=== PATIENT | male | born 1970 | race Caucasian/White ===

== ENCOUNTER 2017-06-19 10:34 | Emergency (ER) | payer BC, SELFPAY ==
[2017-06-19 10:43] VITALS: BP 139/85; PULSE 80; RESP 18; TEMP 36.8; O2SAT 97; BMI 24.5
--- NOTE | 2017-06-19 11:52 | HMH.EDGENADL ---
ED Disposition Clinical Impression: Musculoskeletal back pain Disposition: Home, Self-Care Condition on Discharge: Good Instructions: DI for Acute Pain -- Adult Additional Instructions: Sit down work until cleared by Dr. Strickland, see Dr. Strickland in one to four days for follow up; Rx Naproxen and Flexeril; do not take Flexeril if driving/operating equipment. Prescriptions: Cyclobenzaprine HCl [Flexeril 10mg tablet] 10 mg PO TID PRN #6 tablet PRN Reason: Muscle Spasm Naproxen [EC-Naprosyn] 500 mg PO BID PRN #[address] tablet.[address] ELLIS Reason: Pain Per Pt ([employer] Use Only) - Critical Care Critical Care Time: No Attestation: On 06/19/17, the high probability of a clinically significant, sudden or life threatening deterioration of the following system(s) required my full and direct attention, intervention and personal management. The time I documented below is in addition to time spent performing reported procedures but includes the following listed in this critical care notation. Medical Decision Making - Medical Records Medical records reviewed: Yes: I reviewed the patient's medical records. Vital Signs: 06/19/17 10:43 Temperature 98.2 F Temperature Source Oral Pulse Rate [Right Brachial] 80 Respiratory Rate 18 Blood Pressure [Right Arm] 139/85 Blood Pressure Mean [Right Arm] 103 Blood Pressure Source [Right Arm] Automatic Cuff Blood Pressure Position [Right Arm] Sitting 02 Sat by Pulse Oximetry 97 Oxygen Delivery Method Room Air - David Inquiry Pt receiving controlled substance: No General Adult HPI - General Chief complaint: PAIN Stated complaint: BACK PAIN Time Seen by Provider: 06/19/17 11:52 Mode of Arrival: Ambulatory Source of Information: Patient Limitations: No Limitations Description of Symptoms (Recalled from ER Triage Doc. by RN): PT C/O SEVERE LOWER BACK PAIN THAT BEGAN AROUND 0400. PT DENIES ANY KNOWN INJURY - History of Present Illness HPI narrative: Patient lifts frequently at work. He has intense muscle spasm to the left lower back after getting off work this morning at 4:00. No loss of bowel or bladder function. He has had back spasm in the past, but this is more intense. No acute traumatic event. No urinary symptoms. Pain is strictly positional. No syncope no cardiovascular risk factors. He has not taken any medication for this pain. Onset (ago): hour(s) (8) Location: back Radiation: non-radiation Severity: moderate Quality: aching Exacerbating factors: movement Associated symptoms: denies other symptoms Treatments prior to arrival: none - Related Data Previous Rx's Medication Instructions Recorded Cyclobenzaprine HCl [Flexeril 10mg 10 mg PO TID PRN #6 tab 06/19/17 tablet] Naproxen [EC-Naprosyn] 500 mg PO BID PRN #20 tablet. 06/19/17 Allergies Allergy/AdvReac Type Severity Reaction Status Date / Time No Known Drug Allergies Allergy Verified 06/19/17 10:52 No Known Drug Intolerances Allergy Verified 06/19/17 10:52 NO KNOWN ALLERGIES - NKA Allergy Mild Uncoded 06/03/17 14:28 [facility] History Medical History: Denies:: Cancer, Diabetes Mellitus Type 1, Diabetes Mellitus Type 2, MRSA Amputation: No - *Social History Smoking Status: Current every day smoker Tobacco Type: cigarettes Alcohol Intake: never - Psychiatric History Expresses thoughts of harming self/others: None Suicide Plan Description: No Plan ROS Obtained: Yes All systems reviewed & no additional complaints except as noted Physical Exam - General General appearance: alert, in no apparent distress - Head Head exam: atraumatic, normocephalic, normal inspection - Eye Eye exam: Present: normal appearance, PERRL, EOMI - Neck Neck exam: Present: normal inspection, full ROM, trachea midline. Absent: meningismus - Chest Chest inspection: Present: normal inspection, symmetric chest wall rise. Absent: tenderness - Respiratory Respiratory exam: Present: normal lung sounds
--- NOTE | 2017-06-19 12:03 | ED_ITS ---
ED Disposition Clinical Impression: Musculoskeletal back pain Disposition: Home, Self-Care Condition on Discharge: Good Instructions: DI for Acute Pain -- Adult Additional Instructions: Sit down work until cleared by Dr. Strickland, see Dr. Strickland in one to four days for follow up; Rx Naproxen and Flexeril; do not take Flexeril if driving/ operating equipment. Prescriptions: Cyclobenzaprine HCl [Flexeril 10mg tablet] 10 mg PO TID PRN #6 tablet PRN Reason: Muscle Spasm Naproxen [EC-Naprosyn] 500 mg PO BID PRN #20 tablet.dr ELLIS Reason: Pain Per Pt ([employer] Use Only) - Critical Care Critical Care Time: No Attestation: On 06/19/17, the high probability of a clinically significant, sudden or life threatening deterioration of the following system(s) required my full and direct attention, intervention and personal management. The time I documented below is in addition to time spent performing reported procedures but includes the following listed in this critical care notation. Medical Decision Making - Medical Records Medical records reviewed: Yes: I reviewed the patient's medical records. Vital Signs: 06/19/17 10:43 Temperature 98.2 F Temperature Source Oral Pulse Rate [Right Brachial] 80 Respiratory Rate 18 Blood Pressure [Right Arm] 139/85 Blood Pressure Mean [Right Arm] 103 Blood Pressure Source [Right Arm] Automatic Cuff Blood Pressure Position [Right Arm] Sitting 02 Sat by Pulse Oximetry 97 Oxygen Delivery Method Room Air - David Inquiry Pt receiving controlled substance: No General Adult HPI - General Chief complaint: PAIN Stated complaint: BACK PAIN Time Seen by Provider: 06/19/17 11:52 Mode of Arrival: Ambulatory Source of Information: Patient Limitations: No Limitations Description of Symptoms (Recalled from ER Triage Doc. by RN): PT C/O SEVERE LOWER BACK PAIN THAT BEGAN AROUND 0400. PT DENIES ANY KNOWN INJURY - History of Present Illness HPI narrative: Patient lifts frequently at work. He has intense muscle spasm to the left lower back after getting off work this morning at 4:00. No loss of bowel or bladder function. He has had back spasm in the past, but this is more intense. No acute traumatic event. No urinary symptoms. Pain is strictly positional. No syncope no cardiovascular risk factors. He has not taken any medication for this pain. Onset (ago): hour(s) (8) Location: back Radiation: non-radiation Severity: moderate Quality: aching Exacerbating factors: movement Associated symptoms: denies other symptoms Treatments prior to arrival: none - Related Data Previous Rx's Medication Instructions Recorded Cyclobenzaprine HCl [Flexeril 10mg 10 mg PO TID PRN #6 tab 06/19/17 tablet] Naproxen [EC-Naprosyn] 500 mg PO BID PRN #20 tablet. 06/19/17 Allergies Allergy/AdvReac Type Severity Reaction Status Date / Time No Known Drug Allergies Allergy Verified 06/19/17 10:52 No Known Drug Intolerances Allergy Verified 06/19/17 10:52 NO KNOWN ALLERGIES - NKA Allergy Mild Uncoded 06/03/17 14:28 [facility] History Medical History: Denies:: Cancer, Diabetes Mellitus Type 1, Diabetes Mellitus Type 2, MRSA Amputation: No - *Social History Smoking Status: Current every day smoker Tobacco Type: cigarettes Alcohol Intake: never - Psychiatric History Expresses michelle
[2017-06-19 12:18] VITALS: BP 132/75; PULSE 82; RESP 18
== END 2017-06-19 12:18 | disposition home or self-care (01) ==
PROVIDERS: Emergency Provider Emergency Medicine; Family Provider Family Medicine
DX: M54.5 Low back pain (principal); M62.838 Other muscle spasm
CPT/HCPCS: 96372; 99282

== ENCOUNTER → 2017-06-23 15:39 | Outpatient (CLI) | payer SELFPAY ==
--- NOTE | 2017-06-23 15:49 | XR_ITS ---
EXAM: XR lumbar spine min 4V HISTORY: ITS.REASON: LOW BACK PAIN ORDERING PHYSICIAN: Michael Strickland MD PATIENT AGE: 47 years COMPARISON: None FINDINGS: Normal alignment. No fracture or dislocation. No lytic or blastic change. Bony spurs present along the left lateral aspect of L1 and L2. There is mild osteosclerosis of the upper aspect of the SI joints. IMPRESSION: No acute finding. Mild hypertrophic changes of L1 and L2 and superior aspect of the SI joints
== END ==
PROVIDERS: PCP Family Medicine; Visit Provider Family Medicine
DX: S33.9XXA Sprain of unspecified parts of lumbar spine and pelvis, initial encounter (principal)
CPT/HCPCS: 72110

== ENCOUNTER 2017-06-30 12:42 | Outpatient (RCR) | payer BC, SELFPAY | END 2017-06-30 12:43 | disposition home or self-care (01) | LOC: PT 12:42 | PROVIDERS: Family Provider Family Medicine; PCP Family Medicine; Visit Provider Family Medicine | DX: S33.9XXA Sprain of unspecified parts of lumbar spine and pelvis, initial encounter (principal); M54.5 Low back pain | CPT/HCPCS: 97161 ==

== ENCOUNTER → 2018-10-23 09:36 | Outpatient (CLI) | payer BC, SELFPAY ==
--- NOTE | 2018-10-23 09:43 | CI_ITS ---
Cerebrovascular Exam Indications: 780.4 Dizziness and giddiness. IMPRESSIONS 1. The bilateral vertebral arteries are patent with normal antegrade flow. 2. Study suggests 20-49% stenosis involving the right internal carotid artery. 3. Study suggests less than 20% stenosis involving the left internal carotid artery. History: Risk factors: Current tobacco use. Hypertension. Hyperlipidemia. Carotid duplex study. Complete study and Doppler flow study including spectral analysis, color and romano scale imaging. Height: Height: 177.8cm. Height: 70in. Weight: Weight: 83.5kg. Weight: 183.6lb. Body mass index: BMI: 26.4kg/m^2. Body surface area: BSA: 2.04m^2. Location: Vascular laboratory. Patient status: Outpatient. Tables: Arterial flow: + +--------+--------+ Location V sys V ed + +--------+--------+ Right CCA - proximal 91.9cm/s 23.6cm/s + +--------+--------+ Right CCA - distal 87.2cm/s 29.9cm/s + +--------+--------+ Right ECA 125cm/s 20.1cm/s + +--------+--------+ Right ICA - proximal 74.6cm/s 26.9cm/s + +--------+--------+ Right ICA - mid 86.8cm/s 37.3cm/s + +--------+--------+ Right ICA - distal 83.1cm/s 37.3cm/s + +--------+--------+ Right vertebral 49.9cm/s 14.7cm/s + +--------+--------+ Left CCA - proximal 105cm/s 27.4cm/s + +--------+--------+ Left CCA - distal 90.4cm/s 28.3cm/s + +--------+--------+ Left ECA 97.4cm/s 17.3cm/s + +--------+--------+ Left ICA - proximal 67.6cm/s 24.4cm/s + +--------+--------+ Left ICA - mid 64.4cm/s 22.8cm/s + +--------+--------+ Left ICA - distal 79.5cm/s 32.4cm/s + +--------+--------+ Left vertebral 63.6cm/s 16.5cm/s + +--------+--------+ Velocity ratios: + + + + + + Right, V sys Right, V ed Left, V sys Left, V ed + + + + + + Max ICA/dist CCA 1 1.25 0.88 1.14 + + + + + + (Report amended ) Electronically signed by: Real Torres [id number]
== END ==
PROVIDERS: PCP Family Medicine; Visit Provider Nurse Practitioner Family
DX: R42 Dizziness and giddiness (principal)
CPT/HCPCS: 93880

== ENCOUNTER → 2018-10-26 13:09 | Outpatient (CLI) | payer BC, SELFPAY ==
--- NOTE | 2018-10-26 13:14 | XR_ITS ---
XR chest 2V HISTORY: Shortness of breath and chest pain ITS.REASON: SOB ORDERING PHYSICIAN: Rhonda Mathis APRN PATIENT AGE: 48 years COMPARISON: 06/27/2014 FINDINGS: The cardiomediastinal silhouette and pulmonary vascularity are within normal limits. The lungs are clear without infiltrates, suspicious nodules, or pleural effusions. No acute bony abnormalities. IMPRESSION: Negative chest, no acute finding
== END ==
PROVIDERS: PCP Family Medicine; Visit Provider Nurse Practitioner Family
DX: R07.9 Chest pain, unspecified (principal); R06.02 Shortness of breath; R00.2 Palpitations
CPT/HCPCS: 71046; 93005; 93225; 93226

== ENCOUNTER → 2018-11-03 07:30 | Outpatient (CLI) | payer BC, SELFPAY ==
--- NOTE | 2018-11-03 07:47 | HMH.ITSHM ---
Current Home Medications as stated by this patient Heath Teresa or representative government relations. []LISINOPRIL PAXIL VITAMIN D
--- NOTE | 2018-11-03 08:00 | NM_ITS ---
SPECT MYOCARDIAL PERFUSION SCAN, REST AND STRESS: EXERCISE STRESS: [facility] REVIEW QGS EF AND WALL MOTION EVALUATION: QPS - PERFUSION EVALUATION: HISTORY: SOB, Palpitations, Syncope, Fatigue, HTN, Tobacco use, Family history PROCEDURE: Rest imaging performed after administration of10.49 millicuries Tc MIBI. Dose administered at7:40 a.m., with imaging thereafter. Stress imaging was then performed [id number] minutes of exercise stress. The patient achieved a heart [id number] with projected heart rate of146 . Resting BP151/91 with stress 196/86. At maximum exercise stress,31.5 millicuries Tc MIBI administered at9:35 a.m. with [id number] minutes thereafter. FINDINGS: Perfusion Evaluation: The single slice spect images as well as the [facility] bull's-eye data summary were reviewed. Wall Motion and Ejection Fraction Evaluation: Gated SPECT review and analysis used to evaluate these features. There is a 55 % left ventricular ejection fraction. There seems to be good wall motion Stress images reveal decreased activity in the inferior apical wall while rest images reveal uniform myocardial activity IMPRESSION: Bursal ischemia in the inferior apical wall with normal ejection fraction normal wall motion. High risk abnormal stress test
--- NOTE | 2018-11-03 08:40 | CA_ITS ---
PROCEDURE: 2-D M-mode and color Doppler study INDICATIONS FOR THE TEST: Chest painX COPD Heart Murmur Tobacco SmokingX PalpitationsX Fatigue Syncope Edema HypertensionXDiabetes Mellitus Rheumatic Fever SOB PINTO Obesity Hyperlipidemia Family History HD Additional History PATIENT INFORMATION HEIGHT: 70 WEIGHT:184 GENDER: Male B/P:110/80 2-D/M-MODE INTERPRETATION: 2-D MEASUREMENTS OBSERVED VALUES IN CMS Right Ventricular Dimension (RVDd) 3.3 Interventricular Septum (Thickness)(IVsd) .9 Left Ventricular Internal Dimensions(LVIDd) 5.2 Left Ventricular Posterior Wall (Thickness)(LVPWd) 1.0 Aortic Root 3.3 Aortic Cusp Separation 1.9 Left Atrial Dimensions (LAD) 3.8 2D 1. Left atrium is mildly enlarged, left ventricle is normal size, mild concentric left ventricular hypertrophy, visually estimated ejection fraction 55% with no regional wall motion abnormality. 2. The right atrium and right ventricle are mildly enlarged with normal contractility. 3. The aortic valve is thickened and calcified leaflet continue to display mobility. 4. The mitral and tricuspid valve are grossly normal. 5. The pulmonic valve is poorly visualized. 6. No significant pericardial effusion noted. DOPPLER INTERROGATION: Doppler interrogation of the aortic, mitral and tricuspid valvular presence of mild mitral and tricuspid regurgitation, tricuspid regurgitation jet velocity is inadequate for calculation of the right ventricular systolic pressure, diastolic parameters are within normal range. CONCLUSION: 1. Mildly enlarged left atrium, normal left ventricular size, mild concentric left ventricular hypertrophy, visually estimated ejection fraction 55% with no regional wall motion abnormality, diastolic parameters are within normal range. 2. Thickened and calcified aortic valve consistent with aortic sclerosis, there is no aortic stenosis or aortic insufficiency. 3. Mild mitral and tricuspid regurgitation 4. No significant pericardial effusion noted.
--- NOTE | 2018-11-03 10:30 | CT_ITS ---
CT head/brain wo/w con HISTORY: ITS.REASON: DIZZINESS,CP, PALPATATIONS ORDERING PHYSICIAN: Rhonda Mathis APRN PATIENT AGE: 48 years COMPARISON: None TECHNIQUE: Axial images obtained without and with 100 mL's Optiray 320. Brain and bone windows reviewed. All CT scans at the facility use one or more dose reduction, viz: automated exposure control, ma/kV adjustment per patient size (including targeted exams where dose is matched to indication, i.e. head), or iterative reconstruction technique. FINDINGS: No midline shift, mass effect, intracranial hemorrhage, hydrocephalus, or extra-axial fluid collection is evident. No enhancing lesions. No acute calvarial abnormality. No mastoid effusion. There is opacification of the anterior ethmoids bilaterally slightly more extensive on the right extending into the right frontal sinus. IMPRESSION: 1. No acute intracranial findings. 2. Mild sinus disease
== END ==
PROVIDERS: PCP Nurse Practitioner Family; Visit Provider Nurse Practitioner Family
DX: R00.2 Palpitations (principal); R07.9 Chest pain, unspecified; R42 Dizziness and giddiness
CPT/HCPCS: 70470; 78452; 93017; 93306; A9502; Q9967

== ENCOUNTER 2018-11-17 08:26 | Day surgery (SDC) | payer BC, SELFPAY ==
[2018-11-17] VITALS (12 sets, daily range): BP systolic 100–125; BP diastolic 59–76; PULSE 63–77; RESP 16; O2SAT 93–98; BMI 26.9; BMI 26.3
--- NOTE | 2018-11-17 | IR_ITS ---
CARDIAC CATHETERIZATION DATE OF CATHETERIZATION:11/17/2018 11:33 AM PROCEDURES: 1. Left heart catheterization 2. Left ventriculogram 3. Selective coronary angiogram INDICATION FOR TEST: 1. Abnormal Myoview 2. Angina pectoris Informed consent was obtained prior to the procedure. COMPLICATIONS: None ESTIMATED BLOOD LOSS: Less than 10 ml. TECHNIQUE: One percent lidocaine used to anesthetize the right anterior aspect of the wrist. The right radial artery was accessed via the Seldinger technique. A 6 Portuguese sheath was placed in the right radial artery. 2.5 mg of verapamil, 800 mcg of nitroglycerin, 1mg Lidocaine and 5000 U Heparin were given through the arterial sheath. The trap catheter was also used to perform left heart catheterization, left ventriculogram and selective coronary angiogram. At the end of the procedure the sheath was removed good hemostasis was achieved using Traclet band, patient was transferred to the postop holding area in stable condition . ANGIOGRAPHIC RESULTS: 1. The left main artery normal 2. The left anterior descending artery normal 3. The circumflex artery codominant normal 4. The right coronary artery codominant with a proximal smooth 20-30% stenosis 5. The BARRIENTOS ventriculogram reveals normal 65% 6. The left ventricular end-diastolic pressure 15 mmHg IMPRESSION: 1. Mild nonflow limiting coronary artery disease in the proximal codominant right coronary artery 2. Normal ejection fraction 3. Mildly elevated LVEDP PLAN: 1. Risk factor modification 2. Evaluation noncardiac symptomatology
[2018-11-17 09:30] LABS: Basophils % 0.5 % (0.1-2.0); Eosinophils # 0.4 K/mm3 (0.0-0.4); Eosinophils % 5.5 % (0.1-12.0); Hematocrit 49.9 % (42.0-52.0); Hemoglobin 17.5 g/dL (14.1-18.0); Lymphocytes # 1.8 K/mm3 (0.7-4.5); Mean Corpuscular Hemoglobin 32.1 pg (27.0-31.2); Mean Corpuscular Volume 91.9 fl (80-94); Monocytes # 0.6 K/mm3 (0.1-1.0); Neutrophils # 3.8 K/mm3 (1.8-7.8); Neutrophils % 57.9 % (37.0-80.0); Platelet Count 296 K/mm3 (142-424); Red Blood Count 5.43 M/mm3 (4.60-6.20); Red Cell Distribution Width 12.5 % (11.5-17.5); White Blood Count 6.5 K/mm3 (4.8-10.8)
[2018-11-17 09:43] LABS: Anion Gap 15.1 mEq/L (5-15); Blood Urea Nitrogen 14 mg/dL (7-18); Calcium 8.9 mg/dL (8.5-10.1); Carbon Dioxide 24 mmol/L (21.0-32.0); Chloride 103 mmol/L (98-107); Creatinine Clearance Estimated 113 mL/min (50-200); Creatinine,Serum 0.94 mg/dL (0.70-1.30); Estimated Glomerular Filt Rate 86 ml/min (>60); GFR (African American) 104 ML/MIN (>60); Glucose 97 mg/dL (74-106); Potassium 4.1 mmoL/L (3.5-5.1); Sodium 138 mmol/L (136-145)
== END 2018-11-17 14:25 | disposition home or self-care (01) ==
PROVIDERS: PCP Family Medicine; Visit Provider Internal Medicine
DX: R94.39 Abnormal result of other cardiovascular function study (principal); I25.10 Atherosclerotic heart disease of native coronary artery without angina pectoris; I65.29 Occlusion and stenosis of unspecified carotid artery; I35.8 Other nonrheumatic aortic valve disorders; I10 Essential (primary) hypertension; Z72.0 Tobacco use; Z82.49 Family history of ischemic heart disease and other diseases of the circulatory system
CPT/HCPCS: 80048; 85025; 93458; 99152; C1725; C1769; J1644; Q9967

== ENCOUNTER → 2019-01-25 15:29 | Outpatient (CLI) | payer BC, SELFPAY ==
--- NOTE | 2019-01-25 15:35 | XR_ITS ---
XR ankle LT min 3V HISTORY: ITS.REASON: SPRAIN OF ANTERIOR TALOFIBULAR LIGAMENT ORDERING PHYSICIAN: Maribell Schneider MD PATIENT AGE: 48 years Comparison: None FINDINGS: No fracture or dislocation. No lytic or blastic change. There is normal mineralization.. The joint spaces are well-preserved. No significant degenerative/arthritic changes. No erosive changes evident. IMPRESSION: Negative ankle, no acute finding
== END ==
PROVIDERS: PCP Emergency Medicine; Visit Provider Emergency Medicine
DX: S93.492D Sprain of other ligament of left ankle, subsequent encounter (principal)
CPT/HCPCS: 73610

== ENCOUNTER 2019-01-27 07:53 | Outpatient (RCR) | payer BC, SELFPAY ==
--- NOTE | 2019-01-27 09:21 | HMH.PTOPEV ---
PT Outpatient Evaluation Rehab PT Outpatient Evaluation Start: 01/27/19 08:49 Freq: Status: Active Protocol: Document 01/27/19 08:49 JULIANEGUSTAVO (Rec: 01/27/19 09:21 NADIA [id number]) Electronically Signed By Ariel Buenrostro, PT 01/27/19 08:49 Outpatient Therapy Subjective History Subjective History Pt is a 48 year old male presenting to outpatient PT with reports of L foot/ankle pain starting 12/28/18 of insidious onset. No recent diagnostics to report. He is set to have MRI this week. He reports pain across the anterior TCJ and anterior tibialis distribution. Pt ambulates into clinic in tall CAM walker with bilateral axillary crutches. Comorbidities include hx of HTN and heart catheterization. Chief Complaint Pain,Stiff,Swelling Symptom Type Shooting Symptoms Relieved By Rest/Positioning,Ice, Prescription Meds Symptoms Aggravated By Standing,Physical Activity, Walking Prior Functional Limitations None Current Functional Limitations Housework,Standing,Squatting, Recreation Activity,Walking, Stairs,Balance Symptom Description Constant but Variable Level of pain today (0-10) 6 Pain scale - at its best (0-10) 6 Pain scale - at its worst (0-10) 9 Ankle/Foot Eval Gait Observation General Gait Pattern Observation Antalgic Gait,Decrease Weight Bear (L) Assistive Device Ambulation Assistive Device Axillary Crutches Palpation Tenderness left Ankle/Foot Palpation Findings Tenderness ATF TTP positive ROM Ankle/Foot Dorsiflexion w/Knee Extended -8 Active Range Motion (degrees) Ankle/Foot Dorsiflexion w/Knee Extended 2 Passive Range (degrees) Ankle/Foot Plantar Flexion Active Range WFL of Motion (degrees) Ankle/Foot Eversion Active Range of 8 Motion (degrees) Ankle/Foot Eversion Passive Range of 20 Motion (degrees) Ankle/Foot Inversion Active Range of 10 Motion (degrees) Ankle/Foot Inversion Passive Range of 35 Motion (degrees) Ankle/Foot ROM Limitations Muscle Tone Great Toe ROM Reason Not Measured Within Functional Limits Accessory Movements Ankle Accessory Movements that Elicit Talonavicular Warren,Talus Symptoms
== END 2019-01-27 07:58 | disposition home or self-care (01) ==
LOC: PT 07:53
PROVIDERS: PCP Nurse Practitioner Family; Visit Provider Emergency Medicine
DX: S93.492D Sprain of other ligament of left ankle, subsequent encounter (principal)
CPT/HCPCS: 97014; 97016; 97163; G0283

== ENCOUNTER → 2019-02-02 07:50 | Outpatient (CLI) | payer BC, SELFPAY ==
--- NOTE | 2019-02-02 07:52 | MR_ITS ---
PROCEDURE: MR ANKLE LT WO CON CLINICAL INDICATION: SPRAIN OF ANTERIOR TALOFIBULAR LIGAMENT Left ankle pain and swelling anteriorly COMPARISON: 01/15/2019 TECHNIQUE: Routine multiplanar multi echo sequences are performed without gadolinium enhancement. FINDINGS: There is a prominent amount of bone marrow edema within the talar neck and anterior aspect of the talus consistent with contusion. No obvious fracture is apparent however, subtle micro fracture may not be delineated. The navicular and the calcaneus have unremarkable appearance. The cuboid, cuneiforms, and proximal metatarsals also appear unremarkable. The talar dome has a smooth appearance. The tibiofibular ligaments both anterior and posterior appear intact. The anterior talofibular ligament is thickened consistent with sprain/partial tear. Posterior talofibular ligament also appears slightly thickened consistent with sprain. The deltoid ligament and spring ligament appear intact. Calcaneal fibular ligament is not adequately demonstrated. The prone ill tendons, posterior tibialis, flexor digitorum longus and flexor hallucis longus tendons as well as the anterior extensor tendons and Achilles tendon appear intact. There is some mild edema along the lateral aspect of the midfoot lateral to the perineal tendons IMPRESSION: 1. Bone bruise/contusion of the talar neck and anterior aspect of the talus 2. Sprain versus partial tear of the ATFL and PT FL Dictated by: Real Torres MD 02/06/2019 10:13 Signed by: <Electronically signed by Real Torres MD in [place]> 02/06/2019 10:13
== END ==
PROVIDERS: PCP Nurse Practitioner Family; Visit Provider Emergency Medicine
DX: S93.492D Sprain of other ligament of left ankle, subsequent encounter (principal)
CPT/HCPCS: 73721

== ENCOUNTER → 2019-02-22 10:47 | Outpatient (CLI) | payer BC, SELFPAY ==
--- NOTE | 2019-02-22 10:53 | XR_ITS ---
PROCEDURE: XR FOOT WT BEARING LT 3V CLINICAL INDICATION: pain Medial foot pain COMPARISON: from 01/25/2019 FINDINGS: There is a cast in place. No obvious fracture or dislocation. Other findings:Good alignment. IMPRESSION: Cast in place with good alignment Dictated by: Real Torres MD 02/22/2019 11:37 Electronically signed by Real Torres MD in [place] 02/22/2019 11:37
== END ==
PROVIDERS: PCP Family Medicine; Visit Provider Podiatrist
DX: M25.572 Pain in left ankle and joints of left foot (principal)
CPT/HCPCS: 73630

== ENCOUNTER → 2019-03-03 14:11 | Outpatient (CLI) | payer BC, SELFPAY ==
--- NOTE | 2019-03-03 14:12 | CT_ITS ---
PROCEDURE: CT ANKLE LT WO CON CLINICAL HISTORY: ankle pain Medial ankle pain, injury with pain, bone bruise on previous MRI COMPARISON: MR ANKLE LT WO CON from 02/02/2019 XR FOOT WT BEARING LT 3V from 02/22/2019 TECHNIQUE: Axial images obtained with sagittal and coronal reformats. All CT scans at the facility use one or more dose reduction, viz: automated exposure control, ma/kV adjustment per patient size (including targeted exams where dose is matched to indication, i.e. head), or iterative reconstruction technique. FINDINGS: No fracture or dislocation is evident. There is mild prominence of the trabecular markings within the talus suggesting a developing osteopenia. There is mild soft tissue swelling along the anterior aspect of the ankle. No abnormal fluid collections. IMPRESSION: No acute fracture apparent. Generalized osteopenia with mild soft tissue swelling. Dictated by: Real Torres MD 03/06/2019 09:25 Electronically signed by Real Torres MD in [place] 03/06/2019 09:25
== END ==
PROVIDERS: PCP Family Medicine; Visit Provider Podiatrist
DX: M25.572 Pain in left ankle and joints of left foot (principal); M87.072 Idiopathic aseptic necrosis of left ankle
CPT/HCPCS: 73700

== ENCOUNTER → 2019-03-12 08:58 | Outpatient (CLI) | payer BC, SELFPAY ==
--- NOTE | 2019-03-12 09:01 | NM_ITS ---
PROCEDURE: NM BONE 3 PHASE CLINICAL INDICATION: ABNORMAL XRAY OF EXTREMITY Left ankle pain, abnormal MRI showing diffuse edema of the talus with increasing pain. COMPARISON: MR ANKLE LT WO CON from 02/02/2019 FINDINGS: Dose: 24.9 mCi technetium MDP Blood flow images show increased activity in the region of the left ankle. Blood pool images show intense increased activity at the distal talar region with warm activity in the remaining ankle and midfoot. Delayed images are obtained of both feet and of the entire skeleton. There is intense increased activity at the distal aspect of the talus. Images are also obtained of the entire skeleton. There was slight increased activity in the SI joint region with no other abnormalities apparent. IMPRESSION: There is increased activity in the talus on all 3 phases. The differential diagnosis includes osteomyelitis versus complex regional pain syndrome And verified the exclude a you Dictated by: Real Torres MD 03/14/2019 09:39 Electronically signed by Real Torres MD in [place] 03/14/2019 09:39
== END ==
PROVIDERS: PCP Family Medicine; Visit Provider Family Medicine
DX: R93.7 Abnormal findings on diagnostic imaging of other parts of musculoskeletal system (principal)
CPT/HCPCS: 78315; A9503

== ENCOUNTER → 2019-03-25 10:27 | Outpatient (CLI) | payer BC, SELFPAY ==
[2019-03-25 10:31] LABS: Microscopic, Urine URINE MICROSCOPIC (MICROSCOPIC)
[2019-03-25 10:46] LABS: Appearance,Urine CLEAR (Clear); Bilirubin,Urine Negative (Negative); Blood, Urine Negative (Negative); Color,Urine YELLOW (Yellow); Glucose,Urine (UA) Negative (Negative); Ketones,Urine Negative (Negative); Leukocyte Esterase,Urine Negative (Negative); Nitrate,Urine Negative (Negative); PH,Urine 5.5 (5.0-8.5); Protein,Urine Negative (Negative); Specific Gravity, Urine 1.025 (1.005-1.030); Urobilinogen,Urine 0.2 EU/dl (0.2)
[2019-03-25 10:54] LABS: Basophils # 0.1 K/mm3 (0-0.2); Basophils % 0.7 % (0.1-2.0); Eosinophils # 0.4 K/mm3 (0.0-0.4); Eosinophils % 5.2 % (0.1-12.0); Hematocrit 52.3 % (42.0-52.0); Hemoglobin 16.3 g/dL (14.1-18.0); Lymphocytes # 2.3 K/mm3 (0.7-4.5); Lymphocytes % 31.3 % (10-50); Mean Corpuscular HGB Conc 31.2 g/dL (31.8-35.4); Mean Corpuscular Hemoglobin 31.2 pg (27.0-31.2); Mean Platelet Volume 7.1 fl (7.4-10.4); Monocytes # 0.5 K/mm3 (0.1-1.0); Monocytes % 6.7 % (1.7-9.3); Neutrophils # 4.1 K/mm3 (1.8-7.8); Neutrophils % 56.2 % (37.0-80.0); Platelet Count 318 K/mm3 (142-424); Red Blood Count 5.23 M/mm3 (4.60-6.20); Red Cell Distribution Width 13.7 % (11.5-17.5); White Blood Count 7.3 K/mm3 (4.8-10.8)
[2019-03-25 10:59] LABS: WBC,Urine Occasional #/hpf (0-3)
[2019-03-25 11:00] LABS: RBC,Urine Occasional #/hpf (0-3); Squamous Epithelial Cell,Urine Occasional #/hpf (0-5)
[2019-03-25 11:48] LABS: Alanine Aminotransferase 61 U/L (12-78); Albumin Level 3.6 gm/dL (3.4-5.0); Albumin/Globulin Ratio 1.1 (1.1-1.8); Alkaline Phosphatase 91 U/L (46-116); Anion Gap 13.9 mEq/L (5-15); Aspartate Amino Transferase 26 U/L (15-37); Bilirubin,Total 0.3 mg/dL (0.2-1.0); Blood Urea Nitrogen 12 mg/dL (7-18); Calcium 9.1 mg/dL (8.5-10.1); Carbon Dioxide 26 mmol/L (21.0-32.0); Chloride 103 mmol/L (98-107); Creatinine,Serum 0.96 mg/dL (0.70-1.30); Estimated Glomerular Filt Rate 84 ml/min (>60); GFR (African American) 101 ML/MIN (>60); Globulin 3.2 gm/dl (1.3-3.2); Glucose 148 mg/dL (74-106); Potassium 3.9 mmoL/L (3.5-5.1); Sodium 139 mmol/L (136-145); Thyroid Stimulating Hormone 3.01 uIU/ml (0.358-3.740); Total Protein,Serum 6.8 gm/dL (6.4-8.2)
[2019-03-25 17:00] LABS: Erythrocyte Sedimentation Rate 91 mm/hr (0-15)
[2019-03-26 15:10] LABS: Albumin 3.5 g/dL (2.9-4.4); Alpha-1-Globulin 0.2 g/dL (0.0-0.4); Alpha-2-Globulin 0.8 g/dL (0.4-1.0); Protein, Total 6.7 g/dL (6.0-8.5)
== END ==
PROVIDERS: PCP Family Medicine; Visit Provider Family Medicine
DX: R93.7 Abnormal findings on diagnostic imaging of other parts of musculoskeletal system (principal); M87.073 Idiopathic aseptic necrosis of unspecified ankle
CPT/HCPCS: 36415; 80053; 81001; 84155; 84165; 84443; 85025; 85651

== ENCOUNTER → 2019-03-29 08:50 | Outpatient (POV) | payer BC, SELFPAY ==
[2019-03-29 09:14] VITALS: BP 156/94; PULSE 80; RESP 18; O2SAT 98; BMI 28.4
--- NOTE | 2019-03-30 12:19 | HMH.PMCON ---
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 I will follow-up with the patient 1 month reassess his symptoms at that time. If he has not gotten any relief he will need to undergo a sympathetic block along with physical therapy to help decrease the permanence of CRPS. He is been instructed to call the office if he has any issues prior to his next appointment. Dr. Garza has reviewed this note and agrees with this plan of care. This note was dictated using voice recognition software and may contain errors or omissions HPI - Data of Consult Consult date: 03/29/19 Requesting Physician: Jacki Rogers APRN Primary Care Provider: Shelby Strickland MD - Consult Narrative Reason for consult: CRPS History of present illness: Mr. Teresa is a 48 year old male who presents with diagnosis of CRPS type II of the left foot. This is post injury after stepping out of a car. Patient has constant pain in the area. He has not splinted at this time. He is unable to do physical therapy due to the amount of pain. Patient has color changes along with swelling temperature changes in the affected foot. We discussed the typical course in regards to treatment of CRPS. Patient has not tried any Lyrica or gabapentin. Patient would like to avoid sympathetic blocks if possible however he understands that that might be a future treatment. CC: Jacki Rogers APRN [facility] History I have reviewed the patient's past medical history: Yes Medical History: Reports:: Carotid Stenosis, Coronary Artery Disease, Hypertension Denies:: Cancer, Diabetes Mellitus Type 1, Diabetes Mellitus Type 2, Internal Pacemaker, MRSA *Have you ever received a pneumonia vaccine?: Yes *Have you received a flu vaccine this season?: Yes Other Surgeries: Yes: Cardiac Catheterization. No: Pacemaker Amputation: No Fractures: No - *Social History Smoking Status: Current every day smoker Tobacco Type: cigarettes # Packs/Day (cigarettes): 2 #Yrs smoked (if former smoker): 30 Alcohol Intake: never Alcohol Intake Frequency:: a few times a week Substance Use Type: denies use *Occupational Status:: other Housing: house Household Members: spouse *Travel in the last 8 weeks: None Family Hx:: Coronary Artery Disease, Diabetes Review of Systems - Review of Systems ROS General: no recent weight change, no fever, no sleep disturbances Respiratory: no cough, no shortness of air, no recurring pulmonary infections Cardiovascular/Peripheral Vascular: No chest pain, No palpitations, no edema, no shortness of breath. Gastrointestinal: no new onset incontinence, normal bowel movements reported Genitourinary: no new onset incontinence Musculoskeletal: Left foot pain Psychiatric: normal mood/ affect Neurological: [denies new onset weakness in extremities], [denies new onset balance issues] Meds Home Medications Medication Instructions Recorded Confirmed Type cholecalciferol (vitamin D3) 1,000 1,000 unit PO DAILY 11/11/18 03/09/19 History unit capsule hydrochlorothiazide 25 mg tablet 25 mg PO DAILY #30 tab 11/11/18 03/09/19 Rx paroxetine 10 mg tablet 10 mg PO DAILY 11/11/18 03/09/19 History aspirin 81 mg tablet,delayed 81 mg PO DAILY #30 tab 11/24/18 03/09/19 Rx release atorvastatin 40 mg tablet 40 mg PO DAILY #30 tab 11/24/18 03/09/19 Rx lisinopril 20 mg tablet 20 mg PO DAILY #30 tab 11/24/18 03/09/19 Rx meloxicam 15 mg tablet 15 mg PO BID tab 01/12/19 03/09/19 History methocarbamol 750 mg tablet 750 mg PO DAILY tab 01/12/19 03/09/19 Histo
--- NOTE | 2019-03-30 12:22 | P.CONS_ITS ---
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 I will follow-up with the patient 1 month reassess his symptoms at that time. If he has not gotten any relief he will need to undergo a sympathetic block along with physical therapy to help decrease the permanence of CRPS. He is been instructed to call the office if he has any issues prior to his next appointment. Dr. Garza has reviewed this note and agrees with this plan of care. This note was dictated using voice recognition software and may contain errors or omissions HPI - Data of Consult Consult date: 03/29/19 Requesting Physician: Jacki Rogers APRN Primary Care Provider: Shelby Strickland MD - Consult Narrative Reason for consult: CRPS History of present illness: Mr. Teresa is a 48 year old male who presents with diagnosis of CRPS type II of the left foot. This is post injury after stepping out of a car. Patient has constant pain in the area. He has not splinted at this time. He is unable to do physical therapy due to the amount of pain. Patient has color changes along with swelling temperature changes in the affected foot. We discussed the typical course in regards to treatment of CRPS. Patient has not tried any Lyrica or gabapentin. Patient would like to avoid sympathetic blocks if possible however he understands that that might be a future treatment. CC: Jacki Rogers APRN [facility] History I have reviewed the patient's past medical history: Yes Medical History: Reports:: Carotid Stenosis, Coronary Artery Disease, Hypertension Denies:: Cancer, Diabetes Mellitus Type 1, Diabetes Mellitus Type 2, Internal Pacemaker, MRSA *Have you ever received a pneumonia vaccine?: Yes *Have you received a flu vaccine this season?: Yes Other Surgeries: Yes: Cardiac Catheterization. No: Pacemaker Amputation: No Fractures: No - *Social History Smoking Status: Current every day smoker Tobacco Type: cigarettes # Packs/Day (cigarettes): 2 #Yrs smoked (if former smoker): 30 Alcohol Intake: never Alcohol Intake Frequency:: a few times a week Substance Use Type: denies use *Occupational Status:: other Housing: house Household Members: spouse *Travel in the last 8 weeks: None Family Hx:: Coronary Artery Disease, Diabetes Review of Systems - Review of Systems ROS General: no recent weight change, no fever, no sleep disturbances Respiratory: no cough, no shortness of air, no recurring pulmonary infections Cardiovascular/Peripheral Vascular: No chest pain, No palpitations, no edema, no shortness of breath. Gastrointestinal: no new onset incontinence, normal bowel movements reported Genitourinary: no new onset incontinence Musculoskeletal: Left foot pain Psychiatric: normal mood/ affect Neurological: [denies new onset weakness in extremities], [denies new onset balance issues] Meds Home Medications Medication Instructions Recorded Confirmed Type cholecalciferol (vitamin D3) 1,000 1,000 unit PO DAILY 11/11/18 03/09/19 History unit capsule hydrochlorothiazide 25 mg tablet 25
== END ==
PROVIDERS: PCP Family Medicine; Visit Provider Clinical Nurse Specialist Family Health
DX: G57.72 Causalgia of left lower limb (principal)
CPT/HCPCS: 99202

== ENCOUNTER → 2019-04-12 12:31 | Outpatient (CLI) | payer BC, SELFPAY ==
--- NOTE | 2019-04-12 12:37 | XR_ITS ---
PROCEDURE: XR ANKLE LT MIN 3V CLINICAL INDICATION: acute lt ankle pain COMPARISON: No exams were available for comparison FINDINGS: No fracture, dislocation, lytic change, or blastic change evident. No significant degenerative change IMPRESSION: No acute findings. Dictated by: Real Torres MD 04/12/2019 13:15 Electronically signed by Real Torres MD in [place] 04/12/2019 13:15
== END ==
PROVIDERS: PCP Family Medicine; Visit Provider Family Medicine
DX: M25.572 Pain in left ankle and joints of left foot (principal)
CPT/HCPCS: 73610

== ENCOUNTER → 2019-04-20 11:22 | Outpatient (POV) | payer BC, SELFPAY ==
[2019-04-20 11:36] VITALS: BP 143/94; PULSE 89; RESP 18; O2SAT 98; BMI 28.4
--- NOTE | 2019-04-20 13:12 | P.CONS_ITS ---
[facility] Pain Management SOAP Note Subjective:: Patient is a pleasant 48-year-old white male who presents today for follow-up after starting Lyrica. He states it has helped however he still rates his pain a 9 out of 10 and states is unbearable to walk. Patient had an injury to his left foot after stepping out of a car. He is constant pain in the area. He is unable to do physical therapy due to the pain. Patient is currently on Lyrica 75 mg 1 p.o. twice daily he denies side effects to this. He has color changes along with swelling 10 temperature changes to the affected foot. ROS General: no recent weight change, no fever, no sleep disturbances Respiratory: no cough, no shortness of air, no recurring pulmonary infections Cardiovascular/Peripheral Vascular: No chest pain, No palpitations, no edema, no shortness of breath. Gastrointestinal: no new onset incontinence, normal bowel movements reported Genitourinary: no new onset incontinence Musculoskeletal: Left foot pain Psychiatric: normal mood/ affect Neurological: [denies new onset weakness in extremities], [denies new onset balance issues] Objective:: Physical Exam General: Alert and oriented x3, no acute distress, pleasant and cooperative, [on room air] Lungs: Resps E/U, Symmetrical chest expansion, Eyes: PERRL Musculoskeletal: Range of motion left foot somewhat guarded secondary to pain, deep tendon reflexes normal, strength in upper and lower extremities [5/5], [abnormal gait noted] Neurological: speech clear, 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 We will also start diclofenac 75 mg 1 p.o. twice daily I did discuss with him not to take any other NSAIDs in addition to this. We will also increase his Lyrica to 150 mg 1 p.o. twice daily. Patient and I briefly discussed a neurostimulator however I do believe sympathetic blocks and physical therapy will be beneficial.Patient is not on any anticoagulation therapy. Dr. Garza has reviewed this note and agrees with this plan of care. This note was dictated using voice recognition software and may contain errors or omissions [facility] History I have reviewed the patient's past medical history: Yes Medical History: Reports:: Carotid Stenosis, Coronary Artery Disease, Hypertension Denies:: Cancer, Diabetes Mellitus Type 1, Diabetes Mellitus Type 2, Internal Pacemaker, MRSA *Have you ever received a pneumonia vaccine?: Yes *Have you received a flu vaccine this season?: Yes Other Surgeries: Yes: Cardiac Catheterization. No: Pacemaker Amputation: No Fractures: No - *Social History Smoking Status: Current every day smoker Tobacco Type: cigarettes # Packs/Day (cigarettes): 2 #Yrs smoked (if former smoker): 30 Alcohol Intake: never Alcohol Intake Frequency:: a few times a week Substance Use Type: denies use *Occupational Status:: other Housing: house Household Members: spouse *Travel in the last 8 weeks: None Family Hx:: Coronary Artery Disease, Diabetes
== END ==
PROVIDERS: PCP Family Medicine; Visit Provider Clinical Nurse Specialist Family Health
DX: G57.70 Causalgia of unspecified lower limb (principal)
CPT/HCPCS: 99212

== ENCOUNTER 2019-05-27 16:00 | Outpatient (RCR) | payer BC, SELFPAY ==
--- NOTE | 2019-05-07 15:20 | HMH.PMPROC ---
- Procedure Date: 05/07/19 Time: 15:20 Anesthesiologist:: Daquan Garza MD Complications:: None Pre-procedure Diagnosis:: CRPS type I of the left foot Post-procedure Diagnosis:: Same Indications for Procedure:: This patient is a pleasant 48-year-old white male who we are treating for left foot CRPS type symptoms. He had an injury to his left foot after stepping out of a car. He has autonomic symptoms with some swelling of his left foot. We will do a subset nerve block today followed by physical therapy to see if this will help with his symptoms. Procedure Details:: Lumbar epidural sympathetic block Informed consent was obtained and the risk and benefits of the procedure was explained to the patient. The patient was taken to the procedure room. The patient was placed prone on the procedure table. The patient was prepped and draped in sterile fashion. C-arm fluoroscopy was used to view the lumbar spine. Skin and subcutaneous tissues were anesthetized using lidocaine. I placed an 18-gauge epidural needle and advanced into the L4-L5 interspace using fluoroscopic guidance and [id number] to air. After confirmation of needle placement in the epidural space with dye I injected 5 mL of lidocaine 1.5% with Depo-Medrol 80 mg. Patient tolerated the procedure well with no complications. Plan and Disposition:: We will follow-up with this patient in 2 weeks. Will reevaluate symptoms at that time.
--- NOTE | 2019-05-07 16:07 | HMH.PTOPEV ---
PT Outpatient Evaluation Rehab PT Outpatient Evaluation Start: 05/07/19 15:36 Freq: Status: Active Protocol: Document 05/07/19 15:56 SAMUEL (Rec: 05/07/19 16:07 SAMUEL [email or web address]) Electronically Signed By Josue Houser, PT 05/07/19 15:56 Outpatient Therapy Subjective History Subjective History Pt reports h/o chronic L foot pain following injury on . Pt reports stepping akwardly off curb and spraining/twisting L foot and ankle. Pt reports initial L ankle pain, however, ankle has resolved. Pt reports severe L distal foot pain, kiara. w/toe- off phase on L. MRI and CT scan of L foot revealed bone bruise to L talus which has improved, however, did not reveal any pathology in distal foot. Chief Complaint Pain Symptom Type Sharp Symptoms Relieved By Rest/Positioning Symptoms Aggravated By Walking Prior Functional Limitations Standing,Walking Current Functional Limitations Standing,Walking,Stairs Symptom Description Constant but Variable Level of pain today (0-10) 8 Pain scale - at its best (0-10) 6 Pain scale - at its worst (0-10) 9 Ankle/Foot Eval Gait Observation General Gait Pattern Observation Antalgic Gait Assistive Device Ambulation Assistive Device None Palpation Tenderness left Ankle/Foot Palpation Overall Comment 3-4/4 metatarsal space b/t 3-4 shafts ROM Ankle/Foot Dorsiflexion w/Knee Extended 0-10 Active Range Motion (degrees) Ankle/Foot Plantar Flexion Active Range 0-45 of Motion (degrees) Ankle/Foot Eversion Active Range of 0-18 Motion (degrees) Ankle/Foot Inversion Active Range of 0-25 Motion (degrees) Accessory Movements Metatarsal Accessory Movements that 3rd and 4th highly provocative Elicit Symptoms Toe Accessory Movement that Elicit MTP Dorsal [place],MTP Plantar Symptoms [place] MMT left Ankle Dorsiflexion Strength Grade 5 Normal Ankle Plantarflexion Strength Grade 5 Normal Foot Eversion Strength Grade 5 Normal Foot Inversion Strength Grade 5 Normal Special Tests Foot Interdigital Neuroma Test Positive Left Outpatient Therapy Assessment Impairments Problems/Impairmments Palpation Tenderness,Impaired Gait Pattern,Impaired Walking, Impaired Standing,Impaired
== END 2019-05-27 16:05 | disposition home or self-care (01) ==
LOC: PT 16:00
PROVIDERS: PCP Family Medicine; Visit Provider Anesthesiology
DX: G90.522 Complex regional pain syndrome I of left lower limb (principal)
CPT/HCPCS: 97033; 97035; 97140; 97163; 97760

== ENCOUNTER → 2019-06-01 09:29 | Outpatient (POV) | payer BC, SELFPAY ==
[2019-06-01 09:49] VITALS: BP 128/87; PULSE 97; RESP 18; O2SAT 99; BMI 28.8
--- NOTE | 2019-06-01 11:21 | P.CONS_ITS ---
[facility] Pain Management SOAP Note Subjective:: Patient is a pleasant 48-year-old white male who presents today for follow-up after a lumbar epidural sympathetic block. Patient is being treated for CRPS type I of his left foot. Patient says that he was stepping out of his car and got his foot stuck in between the car and the curb. Patient says this happened in December 2018 and he is continued to have severe foot pain. Patient says that he got little to no relief following the sympathetic block. He rates his pain a 9 out of 10 today. He would like to discuss possible DRG placement. Patient says he has tried all other conservative therapies of a home stretching program, ice and heat therapies, and a TENS unit. He has also undergone chiropractic therapy and physical therapy for greater than 6 weeks. Patient says he has gotten little to no relief. Review of Systems General: No recent weight changes, no fever, no sleep disturbances Respiratory: No cough, no shortness of air, no recurring pulmonary infections Cardiovascular/peripheral vascular: No chest pain, no palpitations, no edema, no shortness of breath Gastrointestinal: No new onset incontinence, normal bowel movements reported Genitourinary: No new onset incontinence Musculoskeletal: [Left foot pain] Psychiatric: Normal mood/affect Neurological: [Denies weakness in extremities], [denies balance issues] Objective:: Physical exam General: Alert and oriented x3, no acute distress, pleasant and cooperative, [on room air] Lungs: Respirations even and unlabored, symmetrical chest expansion Eyes: PERRL Musculoskeletal: Flexion and extension of lumbar spine somewhat guarded secondary to pain, deep tendon reflexes normal, strength in upper and lower extremities [5/5], [abnormal gait noted] Neurological: Speech clear, roller stainer equal, no gross sensory deficit Assessment:: CRPS type I of left foot Plan:: Patient did have a long discussion concerning DRG placement. He is interested in the implanted device. We will schedule him for psychological evaluation and see him back in clinic following his evaluation to determine the plan of care. He has been instructed to contact clinic if he has any concerns for his next appointment. He will continue with anti-inflammatories and a home stretching program. Dr. Garza has reviewed this note and agrees with this plan of care. This note was dictated using voice recognition software and make contain errors or omissions. [facility] History I have reviewed the patient's past medical history: Yes Medical History: Reports:: Carotid Stenosis, Coronary Artery Disease, Hyperlip idemia, Hypertension Denies:: Cancer, Diabetes Mellitus Type 1, Diabetes Mellitus Type 2, Internal Pacemaker, MRSA *Have you ever received a pneumonia vaccine?: Yes *Have you received a flu vaccine this season?: Yes Other Surgeries: Yes: Cardiac Catheterization. No: Pacemaker Amputation: No Fractures: No - *Social History Smoking Status: Current every day smoker Tobacco Type: cigarettes # Packs/Day (cigarettes): 2 #Yrs smoked (if former smoker): 30 Alcohol Intake: current Alcohol Intake Frequency:: a few times a month Substance Use Type: denies use *Occupational Status:: other Housing: house Household Members: spouse *Travel in the last 8 weeks: None Family Hx:: Coronary Artery Disease, Diabetes
== END ==
PROVIDERS: PCP Family Medicine; Visit Provider Clinical Nurse Specialist Family Health
DX: G90.522 Complex regional pain syndrome I of left lower limb (principal)
CPT/HCPCS: 99212

== ENCOUNTER → 2020-06-20 14:19 | Outpatient (CLI) | payer BC, SELFPAY ==
[2020-06-20 14:27] LABS: Basophils # 0.1 K/mm3 (0-0.2); Basophils % 0.6 % (0.1-2.0); Eosinophils # 0.6 K/mm3 (0.0-0.4); Eosinophils % 7.5 % (0.1-12.0); Hematocrit 50.4 % (42.0-52.0); Hemoglobin 17.3 g/dL (14.1-18.0); Lymphocytes % 27.8 % (10-50); Mean Corpuscular HGB Conc 34.3 g/dL (31.8-35.4); Mean Corpuscular Hemoglobin 32.1 pg (27.0-31.2); Mean Corpuscular Volume 93.6 fl (80-94); Mean Platelet Volume 8.2 fl (7.4-10.4); Monocytes # 0.7 K/mm3 (0.1-1.0); Monocytes % 8.9 % (1.7-9.3); Neutrophils % 55.1 % (37.0-80.0); Platelet Count 296 K/mm3 (142-424); Red Blood Count 5.38 M/mm3 (4.60-6.20); Red Cell Distribution Width 13.7 % (11.5-17.5); White Blood Count 7.3 K/mm3 (4.8-10.8)
[2020-06-20 15:08] LABS: Chloride 105 mmol/L (98-107); Potassium 4.2 mmoL/L (3.5-5.1); Sodium 138 mmol/L (136-145)
[2020-06-20 15:10] LABS: Alanine Aminotransferase 40 U/L (12-78); Aspartate Amino Transferase 32 U/L (17-59); Bilirubin,Total 0.6 mg/dl (0.2-1.3); Blood Urea Nitrogen 16 mg/dl (9-20); Estimated Glomerular Filt Rate 89 ml/min (>60); GFR (African American) 108 ML/MIN (>60)
[2020-06-20 15:11] LABS: Albumin Level 4.2 g/dl (3.5-5.0); Albumin/Globulin Ratio 1.4 (1.1-1.8); Alkaline Phosphatase 103 U/L (38-126); Anion Gap 12.2 mEq/L (5-15); Calcium 9.8 mg/dl (8.4-10.2); Carbon Dioxide 25 mmol/L (22.0-30.0); Chol/HDL Ratio 6.9 (1-3.5); Cholesterol 234 mg/dl (140-200); Globulin 3.1 g/dL (1.3-3.2); Glucose 121 mg/dl (74-100); HDL Cholesterol 34 mg/dl (40-60); Total Protein,Serum 7.3 g/dl (6.3-8.2)
[2020-06-20 15:22] LABS: Direct LDL Cholesterol 116.12 mg/dL (100-129); Triglycerides 656 mg/dl (30-150)
[2020-06-20 15:28] LABS: 25-OH Vitamin D, Total 18.2 ng/mL (30-100); Free T4 (Free Thyroxine) 1.15 ng/dl (0.78-2.19)
[2020-06-20 15:42] LABS: Thyroid Stimulating Hormone 3.74 uIU/mL (0.465-4.68)
== END ==
PROVIDERS: Visit Provider Emergency Medicine
DX: E55.9 Vitamin D deficiency, unspecified (principal); Z82.49 Family history of ischemic heart disease and other diseases of the circulatory system; Z79.899 Other long term (current) drug therapy
CPT/HCPCS: 80053; 80061; 82306; 84439; 84443; 85025

== ENCOUNTER → 2020-07-13 12:44 | Outpatient (POV) | payer BC, SELFPAY ==
[2020-07-13 13:17] VITALS: BP 125/86; PULSE 79; RESP 18; TEMP 36.8; O2SAT 99; BMI 27.6
--- NOTE | 2020-07-13 15:36 | HMH.PMCON ---
Assessment and Plan (1) CRPS (complex regional pain syndrome type II) Status: Chronic Qualifiers: Category: Medical Code(s): G56.40 - Causalgia of unspecified upper limb - Assessment and plan all Dx Assessment and Plan for all problems:: patient is uninterested in injective therapy or a neurostimulator at this time. We will start him on gabapentin 100 mg up to 4 times a day. I will follow-up with him in a month reassess his symptoms at that time. If he does not get relief with this we should revisit neuro stimulation. Dr. Garza has reviewed this note and agrees with this plan of care. This note was dictated using voice recognition software and may contain errors or omissions HPI - Data of Consult Consult date: 07/13/20 Requesting Physician: Jacki Rogers APRN Primary Care Provider: Kartik Garcia MD - Consult Narrative Reason for consult: Left foot pain History of present illness: Mr. Teresa is a 50 year old male who presents today for consultation in regards to his CRPS. We have seen him in the past and gave him sympathetic blocks it was not beneficial for him. Patient has tried and failed Lyrica he states he has not tried gabapentin. Patient states that he tried Cymbalta with no success. Patient rates his pain today a 5 out of 10. He is having allodynia along with swelling and color changes temperature changes to his left lower extremity. Patient's tried and failed physical therapy. CC: Jacki Rogers APRN [facility] History I have reviewed the patient's past medical history: Yes Medical History: Reports:: Carotid Stenosis, Coronary Artery Disease, Hyperlipidemia, Hypertension Denies:: Cancer, Diabetes Mellitus Type 1, Diabetes Mellitus Type 2, Internal Pacemaker, MRSA *Have you ever received a pneumonia vaccine?: Yes *Have you received a flu vaccine this season?: Yes Other Medical History: Reports: Arthritis Other Surgeries: Yes: Cardiac Catheterization. No: Pacemaker Amputation: No Fractures: No - *Social History Smoking Status: Current every day smoker Tobacco Type: cigarettes # Packs/Day (cigarettes): 1 #Yrs smoked (if former smoker): 30 Alcohol Intake: never Alcohol Intake Frequency:: a few times a month Substance Use Type: denies use *Occupational Status:: employed Housing: house Household Members: other *Travel in the last 8 weeks: None Family Hx:: Unable to obtain Review of Systems - Review of Systems ROS General: no recent weight change, no fever, no sleep disturbances Respiratory: no cough, no shortness of air, no recurring pulmonary infections Cardiovascular/Peripheral Vascular: No chest pain, No palpitations, no edema, no shortness of breath. Gastrointestinal: no new onset incontinence, normal bowel movements reported Genitourinary: no new onset incontinence Musculoskeletal: Left foot pain Psychiatric: normal mood/ affect Neurological: [denies new onset weakness in extremities], [denies new onset balance issues] Meds Home Medications Medication Instructions Recorded Confirmed Type aspirin 81 mg tablet,delayed 81 mg PO DAILY #30 tab 11/24/18 06/20/20 Rx release diclofenac sodium 1 % topical gel 2 g TOPICAL QID #100 g 05/23/20 06/20/20 Rx duloxetine 30 mg capsule,delayed 30 mg PO DAILY #30 cap 05/23/20 06/20/20 Rx release lidocaine 4 % topical patch 1 patch TOPICAL DAILY PRN #30 each 05/23/20 06/20/20 Rx lisinopril 10 mg tablet 10 mg PO DAILY 05/23/20 06/20/20 History meloxicam 15 mg tablet See Rx Instructions .ROUTE 05/24/20 06/20/20 Rx .COMPLEX #90 tab hydrocodone 5 mg-acetaminophen 325 1 tab PO BID PRN #60 tab 06/20/20 06/20/20 Rx mg tablet atorvastatin 10 mg tablet 10 mg PO HS #30 tab 06/21/20 Rx cholecalciferol (vitamin D3) 25 25 mcg PO DAILY #90 cap 06/21/20 Rx mcg (1,000 unit) capsule ergocalciferol (vitamin D2) 1,250 1,250 mcg PO WEEKLY #5 cap 06/21/20 Rx mcg (50,000 unit) capsule Gabapentin [Neurontin 100mg 100
== END ==
PROVIDERS: PCP Emergency Medicine; Visit Provider Clinical Nurse Specialist Family Health
DX: G56.40 Causalgia of unspecified upper limb (principal)
CPT/HCPCS: 99202; G0463

== ENCOUNTER → 2020-08-03 13:39 | Outpatient (POV) | payer BC, SELFPAY ==
--- NOTE | 2020-08-03 14:40 | HMH.PAINSOAP ---
[facility] Pain Management SOAP Note Subjective:: Is a pleasant 50-year-old white male who presents today for follow-up. Patient was started on gabapentin at his last visit. Patient states that he does get some sleepiness throughout the day however it is very beneficial at nighttime and does help with his foot pain. Patient has tried and failed Lyrica. Patient rates his pain today a 7 out of 10 he is also tried and failed Cymbalta. 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 He has had sympathetic blocks and physical therapy in the past with no benefit. Patient states that gabapentin at nighttime is very beneficial for him he denies any side effects. David reviewed per [facility] General: no recent weight change, no fever, no sleep disturbances Respiratory: no cough, no shortness of air, no recurring pulmonary infections Cardiovascular/Peripheral Vascular: No chest pain, No palpitations, no edema, no shortness of breath. Gastrointestinal: no new onset incontinence, normal bowel movements reported Genitourinary: no new onset incontinence Musculoskeletal: Left foot pain Psychiatric: normal mood/ affect Neurological: [denies new onset weakness in extremities], [denies new onset balance issues] Objective:: Physical Exam General: Alert and oriented x3, no acute distress, pleasant and cooperative, [on room air] Lungs: Resps E/U, Symmetrical chest expansion, Eyes: PERRL Musculoskeletal: Range of motion left leg, deep tendon reflexes normal, strength in upper and lower extremities [5/5], [abnormal gait noted] Neurological: speech clear, 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 I will see him back in 2 months reassess his symptoms at that time he has been instructed to call the office if he has any issues prior to his next appointment. Dr. Garza has reviewed this note and agrees with this plan of care. This note was dictated using voice recognition software and may contain errors or omissions [facility] History I have reviewed the patient's past medical history: Yes Medical History: Reports:: Carotid Stenosis, Coronary Artery Disease, Hyperlipidemia, Hypertension Denies:: Cancer, Diabetes Mellitus Type 1, Diabetes Mellitus Type 2, Internal Pacemaker, MRSA *Have you ever received a pneumonia vaccine?: Yes *Have you received a flu vaccine this season?: Yes Other Medical History: Reports: Arthritis Other Surgeries: Yes: Cardiac Catheterization. No: Pacemaker Amputation: No Fractures: No - *Social History Smoking Status: Current every day smoker Tobacco Type: cigarettes # Packs/Day (cigarettes): 1 #Yrs smoked (if former smoker): 30 Alcohol Intake: never Alcohol Intake Frequency:: a few times a month Substance Use Type: denies use *Occupational Status:: employed Housing: house Household Members: other *Travel in the last 8 weeks: None Family Hx:: Unable to obtain
[2020-08-03 14:52] VITALS: BP 142/74; PULSE 74; RESP 18; O2SAT 99; BMI 27.6
== END ==
PROVIDERS: PCP Emergency Medicine; Visit Provider Clinical Nurse Specialist Family Health
DX: G56.40 Causalgia of unspecified upper limb (principal)
CPT/HCPCS: 99212; G0463

== ENCOUNTER → 2020-08-15 14:57 | Outpatient (CLI) | payer BC, SELFPAY ==
[2020-08-15 16:44] LABS: Amphetamine/Metha Screen,Urine Negative ng/ml (<1000); Benzodiazepines Screen,Urine Negative ng/ml (<200)
[2020-08-15 16:45] LABS: Barbiturates Screen,Urine Negative ng/ml (<200)
[2020-08-15 16:46] LABS: Cannabinoid Screen,Urine Negative ng/ml (<50); Cocaine Screen,Urine Negative ng/ml (<300)
[2020-08-15 16:47] LABS: Methadone Screen,Urine Negative ng/ml (<300); Opiate Screen,Urine Positive ng/ml (<300)
[2020-08-15 16:48] LABS: Phencyclidine Screen,Urine Negative ng/ml (<25)
== END ==
PROVIDERS: Visit Provider Emergency Medicine
DX: Z79.899 Other long term (current) drug therapy (principal)
CPT/HCPCS: 80305

== ENCOUNTER → 2020-10-12 14:25 | Outpatient (POV) | payer BC, SELFPAY ==
--- NOTE | 2020-10-12 14:44 | HMH.PAINSOAP ---
[facility] Pain Management SOAP Note Subjective:: Patient is a pleasant 50-year-old white male who presents today for follow-up. Patient was started on gabapentin 100 mg at bedtime he is doing extremely well with this he would like to increase this to twice a day. He rates his pain today a 6 out of 10. Patient's tried and failed Lyrica and Cymbalta. 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 He has had sympathetic blocks and physical therapy in the past with no benefit. Patient states that gabapentin makes his life much more manageable and that he is able to move forward with activities of daily living. Patient's David #[id number] reviewed and appropriate. ROS General: no recent weight change, no fever, no sleep disturbances Respiratory: no cough, no shortness of air, no recurring pulmonary infections Cardiovascular/Peripheral Vascular: No chest pain, No palpitations, no edema, no shortness of breath. Gastrointestinal: no new onset incontinence, normal bowel movements reported Genitourinary: no new onset incontinence Musculoskeletal: Left foot pain Psychiatric: normal mood/ affect Neurological: [denies new onset weakness in extremities], [denies new onset balance issues] Objective:: Physical Exam General: Alert and oriented x3, no acute distress, pleasant and cooperative, [on room air] Lungs: Resps E/U, Symmetrical chest expansion, Eyes: PERRL Musculoskeletal: Decreased range of motion left foot somewhat guarded secondary to pain, deep tendon reflexes normal, strength in upper and lower extremities [5/5], [abnormal gait noted] Neurological: speech clear, 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 twice daily. We will see him back in 3 months reassess his symptoms at that time he has been instructed to call the office if he has any issues prior to his next appointment. Dr. Garza has reviewed this note and agrees with this plan of care. This note was dictated using voice recognition software and may contain errors or omissions [facility] History I have reviewed the patient's past medical history: Yes Medical History: Reports:: Carotid Stenosis, Coronary Artery Disease, Hyperlipidemia, Hypertension Denies:: Cancer, Diabetes Mellitus Type 1, Diabetes Mellitus Type 2, Internal Pacemaker, MRSA *Have you ever received a pneumonia vaccine?: No *Have you received a flu vaccine this season?: Yes Other Medical History: Reports: Arthritis Other Surgeries: Yes: Cardiac Catheterization. No: Pacemaker Amputation: No Fractures: No - *Social History Smoking Status: Current every day smoker Tobacco Type: cigarettes # Packs/Day (cigarettes): 1 #Yrs smoked (if former smoker): 30 Alcohol Intake: never Alcohol Intake Frequency:: a few times a month Substance Use Type: denies use *Occupational Status:: other Housing: house Household Members: other *Travel in the last 8 weeks: None Family Hx:: Heart Attack
[2020-10-12 15:02] VITALS: BP 132/71; PULSE 74; RESP 18; O2SAT 98; BMI 27.9
== END ==
PROVIDERS: Visit Provider Clinical Nurse Specialist Family Health
DX: G90.522 Complex regional pain syndrome I of left lower limb (principal)
CPT/HCPCS: 99212; G0463

== ENCOUNTER → 2020-11-17 14:14 | Outpatient (CLI) | payer BC, SELFPAY ==
[2020-11-17 16:50] LABS: Amphetamine/Metha Screen,Urine Negative ng/ml (<1000)
[2020-11-17 16:51] LABS: Barbiturates Screen,Urine Negative ng/ml (<200); Benzodiazepines Screen,Urine Negative ng/ml (<200)
[2020-11-17 16:52] LABS: Cannabinoid Screen,Urine Negative ng/ml (<50)
[2020-11-17 16:53] LABS: Cocaine Screen,Urine Negative ng/ml (<300); Methadone Screen,Urine Negative ng/ml (<300)
[2020-11-17 16:54] LABS: Opiate Screen,Urine Negative ng/ml (<300)
[2020-11-17 16:55] LABS: Phencyclidine Screen,Urine Negative ng/ml (<25)
== END ==
PROVIDERS: Visit Provider Emergency Medicine
DX: Z79.899 Other long term (current) drug therapy (principal)
CPT/HCPCS: 80305

== ENCOUNTER → 2020-12-15 13:52 | Outpatient (CLI) | payer BC, SELFPAY ==
[2020-12-15 15:29] LABS: Barbiturates Screen,Urine Negative ng/ml (<200)
[2020-12-15 15:30] LABS: Benzodiazepines Screen,Urine Negative ng/ml (<200)
[2020-12-15 15:31] LABS: Amphetamine/Metha Screen,Urine Negative ng/ml (<1000); Cannabinoid Screen,Urine Negative ng/ml (<50)
[2020-12-15 15:32] LABS: Cocaine Screen,Urine Negative ng/ml (<300); Methadone Screen,Urine Negative ng/ml (<300)
[2020-12-15 15:33] LABS: Opiate Screen,Urine Positive ng/ml (<300)
[2020-12-15 15:34] LABS: Phencyclidine Screen,Urine Negative ng/ml (<25)
== END ==
PROVIDERS: Visit Provider Emergency Medicine
DX: Z79.899 Other long term (current) drug therapy (principal)
CPT/HCPCS: 80305

== ENCOUNTER → 2020-12-20 14:56 | Outpatient (CLI) | payer BC, SELFPAY ==
--- NOTE | 2020-12-20 14:57 | MR_ITS ---
PROCEDURE: MR HEAD/BRAIN WO CON CLINICAL INDICATION: Abnormal movement disorder, dysesthesias, numbness Tremors xyrs. Prior CT 11/03/18. COMPARISON: CT HEADWW CT head/brain wo/w con from 11/03/2018 TECHNIQUE: Routine multiplanar multi echo sequences are performed without gadolinium enhancement. FINDINGS: No midline shift, mass effect, intracranial hemorrhage, or hydrocephalus is evident. The cerebellopontine angles, cerebellum, midbrain and brainstem have an unremarkable appearance. No evidence of acute infarction. No abnormal white matter signal intensity. The hippocampal gyri are unremarkable in the temporal horns are symmetric. The pituitary, optic chiasm, corpus callosum, and craniocervical junction have an unremarkable appearance. Mucosal thickening is present involving the maxillary sinuses with bilateral retention cyst and with moderate opacification of the ethmoid sinuses. No mastoid effusion apparent IMPRESSION: 1. No acute intracranial findings. 2. Paranasal sinus disease Dictated by: Real Torres MD 12/21/2020 07:26 Real Torres MD in [place] 12/21/2020 07:26
== END ==
PROVIDERS: PCP Emergency Medicine; Visit Provider Specialist
DX: G37.9 Demyelinating disease of central nervous system, unspecified (principal); R20.0 Anesthesia of skin; R20.8 Other disturbances of skin sensation; R25.1 Tremor, unspecified
CPT/HCPCS: 70551

== ENCOUNTER → 2020-12-22 12:17 | Outpatient (CLI) | payer BC, SELFPAY ==
--- NOTE | 2020-12-22 12:27 | XR_ITS ---
PROCEDURE: XR FOOT LT 2V CLINICAL INDICATION: lefgt ankle and foot injury Pain COMPARISON: CR XR FOOT WT BEARING LT 3V from 02/22/2019 FINDINGS: No fracture or dislocation. No lytic or blastic change. There is normal mineralization. The joint spaces are well-preserved. No significant degenerative/arthritic changes. No erosive changes evident. Other findings:None. IMPRESSION: No acute findings. Dictated by: Real Torres MD 12/22/2020 12:52 Real Torres MD in [place] 12/22/2020 12:52
--- NOTE | 2020-12-22 12:27 | XR_ITS ---
PROCEDURE: XR ANKLE LT 2V CLINICAL INDICATION: twisted ankle and foot COMPARISON: CR XR ANKLE LT MIN 3V from 01/25/2019 CR XR ANKLE LT MIN 3V from 04/12/2019 FINDINGS: No fracture or dislocation. No lytic or blastic change. There is normal mineralization. The joint spaces are well-preserved. No significant degenerative/arthritic changes. No erosive changes evident. Other findings:None. IMPRESSION: Negative left ankle Dictated by: Real Torres MD 12/22/2020 12:52 Real Torres MD in [place] 12/22/2020 12:52
== END ==
PROVIDERS: PCP Emergency Medicine; Visit Provider Emergency Medicine
DX: S99.912A Unspecified injury of left ankle, initial encounter (principal); S99.922A Unspecified injury of left foot, initial encounter; M25.572 Pain in left ankle and joints of left foot
CPT/HCPCS: 73600; 73620

== ENCOUNTER → 2021-01-04 13:53 | Outpatient (POV) | payer BC, SELFPAY ==
[2021-01-04 14:39] VITALS: BP 174/100; PULSE 81; RESP 18; O2SAT 95; BMI 28.1
--- NOTE | 2021-01-04 16:16 | HMH.PAINSOAP ---
[facility] Pain Management SOAP Note Subjective:: Patient is a 50-year-old white male who presents today for follow-up. He is being treated in the clinic for CRPS type one of his left lower extremity. He is currently on gabapentin at 800 mg 1 tablet p.o. twice daily. He says this does give him some relief. He also takes Anderson as prescribed by Dr. Garcia. Patient has had a sympathetic nerve block for his continued CRPS to his lower extremity. He got excellent relief until recently. He is pain returned approximately a month ago. His last visit in the clini was on 10/12/2020. His pain has been manageable up until November. His pain has now returned. He is having severe pain with ambulation due to the pain in the foot. He says that it is progressively worsening. He would like to undergo a repeat injection. He also needs refills on his medication. [facility] #[id number] has been reviewed and is appropriate. Drug screen is appropriate. Review of Systems General: No recent weight changes, no fever, no sleep disturbances Respiratory: No cough, no shortness of air, no recurring pulmonary infections Cardiovascular/peripheral vascular: No chest pain, no palpitations, no edema, no shortness of breath Gastrointestinal: No new onset incontinence, normal bowel movements reported Genitourinary: No new onset incontinence Musculoskeletal: Left lower extremity pain Psychiatric: Normal mood/affect Neurological: [Weakness left lower extremity Objective:: Physical exam General: Alert and oriented x3, no acute distress, pleasant and cooperative, [on room air] Lungs: Respirations even and unlabored, symmetrical chest expansion Eyes: PERRL Musculoskeletal: Flexion and extension of [] left ankle guarded secondary to pain, strength in upper and lower extremities [4/5], [abnormal gait noted] Neurological: Speech clear, 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 He is gotten up to 80% relief after the injection for approximately 3 to 4 months. We will refill his gabapentin 800 mg 1 tablet p.o. twice daily. We will see the patient back in the clinic after his injection for reevaluation of symptoms. Risks and benefits of the medication have been explained in detail to the patient. The patient has been advised to consult with his/her primary care provider and pharmacist regarding drug-drug interaction of medications currently prescribed. Patient has been instructed to contact the clinic with any concerns before the next appointment. Dr. Garza has reviewed this note and agrees with this plan of care. This note was dictated using voice recognition software and make contain errors or omissions. [facility] History I have reviewed the patient's past medical history: Yes Medical History: Reports:: Carotid Stenosis, Coronary Artery Disease, Hyperlipidemia, Hypertension Denies:: Cancer, Diabetes Mellitus Type 1, Diabetes Mellitus Type 2, Internal Pacemaker, MRSA *Have you ever received a pneumonia vaccine?: No *Have you received a flu vaccine this season?: No Other Medical History: Reports: Arthritis Other Surgeries: Yes: Cardiac Catheterization. No: Pacemaker Amputation: No Fractures: No - *Social History Smoking Status: Current every day smoker Tobacco Type: cigarettes # Packs/Day (cigarettes): 1 #Yrs smoked (if former smoker): 30 Alcohol Intake: current Alcohol Intake Frequency:: a few times a month Substance Use Type: denies use *Occupational Status:: unemployed Housing: house Household Members: other, spouse *Travel in the last 8 weeks: None Family Hx:: Heart Attack, Diabetes, Cancer
== END ==
PROVIDERS: Visit Provider Clinical Nurse Specialist Family Health
DX: G90.522 Complex regional pain syndrome I of left lower limb (principal)
CPT/HCPCS: 99212; G0463

== ENCOUNTER 2021-01-19 12:45 | Day surgery (SDC) | payer BC, SELFPAY ==
[2021-01-19 12:57] VITALS: BP 178/97; PULSE 75; RESP 20; TEMP 36.6; O2SAT 97; BMI 28.0
[2021-01-19 13:22] VITALS: BP 137/88; PULSE 86; RESP 18; O2SAT 97
[2021-01-19 13:27] VITALS: BP 152/92; PULSE 90; RESP 18; O2SAT 97
[2021-01-19 14:05] VITALS: BP 160/90; PULSE 71; RESP 20; O2SAT 97
--- NOTE | 2021-01-19 14:06 | HMH.PMPROC ---
- Procedure Date: 01/19/21 Time: 14:06 Anesthesiologist:: Lauren Rodriguez MD Complications:: None Pre-procedure Diagnosis:: CRPS type one of the left lower extremity, chronic left ankle pain Post-procedure Diagnosis:: Same Indications for Procedure:: Is a very pleasant 50-year-old white male who presents today with chronic left ankle pain related to the above diagnosis. He has trialed and failed conservative treatment including oral pain medication and home stretching program for greater than 6 weeks. Previously undergone a left lumbar sympathetic nerve block and reports about 80% pain relief for approximately 6 months. He reports the pain has since returned in the like a repeat injection. For today is for the patient to undergo a repeat left lumbar sympathetic nerve block under fluoroscopy #2. Procedure Details:: Informed consent was obtained the risk and benefits of the procedure were explained the patient. Patient was taken to the procedure room placed prone on the procedure table. He was prepped and draped in sterile fashion. C-arm fluoroscopy was used to view the L4 vertebral body. A 22-gauge 5 inch spinal needle was reduced and advanced into left oblique and subsequently lateral fluoroscopic views until the needle approached the anterior aspect of the L4 vertebral body. Needle placement was confirmed with 5 mL of Isovue contrast dye. After this, 10 mL injectate solution consisting of 9 mL of 0.25% bupivacaine and 40 mg of Depo-Medrol was injected. Patient tolerated the procedure well with no complications. Plan and Disposition:: We will follow-up with this patient in 2 weeks. Will reevaluate pain symptoms at that time.
== END 2021-01-19 14:05 | disposition home or self-care (01) ==
LOC: SC.PAINP 12:47
PROVIDERS: PCP Emergency Medicine; Visit Provider Anesthesiology Pain Medicine
DX: G90.522 Complex regional pain syndrome I of left lower limb (principal); E78.5 Hyperlipidemia, unspecified; I10 Essential (primary) hypertension; M19.90 Unspecified osteoarthritis, unspecified site; Z72.0 Tobacco use; I65.29 Occlusion and stenosis of unspecified carotid artery; Z82.49 Family history of ischemic heart disease and other diseases of the circulatory system
CPT/HCPCS: 62323; J1040; Q9966

== ENCOUNTER → 2021-03-07 09:42 | Outpatient (CLI) | payer BC, SELFPAY | PROVIDERS: Visit Provider Nurse Practitioner | DX: Z20.822 Contact with and (suspected) exposure to COVID-19 (principal) | CPT/HCPCS: C9803; U0003; U0005 ==

== ENCOUNTER → 2022-11-25 23:51 | Outpatient (CLI) | payer BC, SELFPAY ==
[2022-11-25 17:59] LABS: Basophils # 0.1 K/mm3 (0-0.2); Basophils % 0.6 % (0.1-2.0); Eosinophils # 0.5 K/mm3 (0.0-0.4); Eosinophils % 5.6 % (0.1-12.0); Hematocrit 54.5 % (42.0-52.0); Hemoglobin 17.6 g/dL (14.1-18.0); Lymphocytes # 2.2 K/mm3 (0.7-4.5); Mean Corpuscular HGB Conc 32.2 g/dL (31.8-35.4); Mean Corpuscular Hemoglobin 31.7 pg (27.0-31.2); Mean Corpuscular Volume 98.4 fl (80-94); Mean Platelet Volume 9.3 fl (7.4-10.4); Monocytes # 0.6 K/mm3 (0.1-1.0); Monocytes % 7.3 % (1.7-9.3); Neutrophils # 5.3 K/mm3 (1.8-7.8); Neutrophils % 61.6 % (37.0-80.0); Platelet Count 305 K/mm3 (142-424); Red Blood Count 5.54 M/mm3 (4.60-6.20); White Blood Count 8.7 K/mm3 (4.8-10.8)
[2022-11-25 18:10] LABS: Alanine Aminotransferase 35 U/L (12-78); Albumin Level 4.2 g/dl (3.5-5.0); Albumin/Globulin Ratio 1.4 (1.1-1.8); Alkaline Phosphatase 103 U/L (38-126); Anion Gap 16.3 mEq/L (5-15); Aspartate Amino Transferase 34 U/L (17-59); Bilirubin,Total 0.4 mg/dl (0.2-1.3); Blood Urea Nitrogen 14 mg/dl (9-20); Calcium 9.1 mg/dl (8.4-10.2); Carbon Dioxide 22 mmol/L (22.0-30.0); Chloride 106 mmol/L (98-107); Chol/HDL Ratio 6.7 (1-3.5); Cholesterol 249 mg/dl (140-200); Estimated Glomerular Filt Rate 102 ml/min (>60); GFR (African American) 123 ML/MIN (>60); Globulin 2.9 g/dL (1.3-3.2); Glucose 98 mg/dl (74-100); HDL Cholesterol 37 mg/dl (40-60); Potassium 4.3 mmoL/L (3.5-5.1); Sodium 140 mmol/L (136-145); Total Protein,Serum 7.1 g/dl (6.3-8.2); Triglycerides 341 mg/dl (30-150); VLDL Cholesterol 68 mg/dL (0-40)
[2022-11-25 18:21] LABS: Direct LDL Cholesterol 147.23 mg/dL (100-129)
[2022-11-25 18:26] LABS: 25-OH Vitamin D, Total 25.8 ng/mL (30-100)
[2022-11-25 18:41] LABS: Prostate Specific Ag Screen 1.5 ng/ml (0.0-4.0); Thyroid Stimulating Hormone 2.51 uIU/mL (0.465-4.68)
[2022-11-25 20:19] LABS: Hemoglobin A1C 5.3 % (4.0-6.0)
== END ==
PROVIDERS: PCP Student in an Organized Health Care Education/Training Program; Visit Provider Student in an Organized Health Care Education/Training Program
DX: I25.10 Atherosclerotic heart disease of native coronary artery without angina pectoris (principal); E55.9 Vitamin D deficiency, unspecified; E78.5 Hyperlipidemia, unspecified; Z13.29 Encounter for screening for other suspected endocrine disorder; Z12.5 Encounter for screening for malignant neoplasm of prostate
CPT/HCPCS: 80053; 80061; 82306; 83036; 84443; 85025; G0103

== ENCOUNTER 2022-11-27 05:57 | Emergency (ER) | payer BC, SELFPAY ==
[2022-11-27 05:58] VITALS: BP 164/97; PULSE 97; RESP 18; TEMP 36.5; O2SAT 97; BMI 28.8
[2022-11-27 06:21] LABS: Appearance,Urine CLEAR (Clear); Bilirubin,Urine Negative (Negative); Blood, Urine Negative (Negative); Color,Urine YELLOW (Yellow); Glucose,Urine (UA) Negative (Negative); Ketones,Urine Negative (Negative); Leukocyte Esterase,Urine Negative (Negative); Microscopic, Urine URINE MICROSCOPIC (MICROSCOPIC); Nitrate,Urine Negative (Negative); Protein,Urine Negative (Negative); Specific Gravity, Urine >= 1.030 (1.005-1.030); Urobilinogen,Urine 0.2 EU/dl (0.2)
[2022-11-27 06:26] LABS: Basophils # 0.1 K/mm3 (0-0.2); Basophils % 0.4 % (0.1-2.0); Eosinophils # 0.6 K/mm3 (0.0-0.4); Eosinophils % 5.3 % (0.1-12.0); Hematocrit 52.6 % (42.0-52.0); Hemoglobin 16.7 g/dL (14.1-18.0); Lymphocytes # 2.3 K/mm3 (0.7-4.5); Lymphocytes % 22.1 % (10-50); Mean Corpuscular HGB Conc 31.8 g/dL (31.8-35.4); Mean Corpuscular Hemoglobin 31.3 pg (27.0-31.2); Mean Corpuscular Volume 98.3 fl (80-94); Mean Platelet Volume 7.6 fl (7.4-10.4); Monocytes # 0.6 K/mm3 (0.1-1.0); Monocytes % 5.6 % (1.7-9.3); Neutrophils % 66.6 % (37.0-80.0); Platelet Count 309 K/mm3 (142-424); Red Blood Count 5.35 M/mm3 (4.60-6.20); White Blood Count 10.5 K/mm3 (4.8-10.8)
[2022-11-27 06:29] LABS: Alanine Aminotransferase 33 U/L (12-78); Albumin Level 4.4 g/dl (3.5-5.0); Albumin/Globulin Ratio 1.5 (1.1-1.8); Alkaline Phosphatase 95 U/L (38-126); Amylase 76 U/L (30-110); Anion Gap 13.1 mEq/L (5-15); Aspartate Amino Transferase 36 U/L (17-59); Bilirubin,Total 0.6 mg/dl (0.2-1.3); Blood Urea Nitrogen 11 mg/dl (9-20); Carbon Dioxide 26 mmol/L (22.0-30.0); Chloride 103 mmol/L (98-107); Creatinine Clearance Estimated 124 mL/min (50-200); Estimated Glomerular Filt Rate 89 ml/min (>60); GFR (African American) 107 ML/MIN (>60); Glucose 109 mg/dl (74-100); Lipase 100 U/L (23-300); Potassium 4.1 mmoL/L (3.5-5.1); Sodium 138 mmol/L (136-145); Total Protein,Serum 7.4 g/dl (6.3-8.2)
--- NOTE | 2022-11-27 06:29 | CT_ITS ---
FINAL REPORT CLINICAL HISTORY: lt flank pain COMPARISON: None FINDINGS: Axial CT images of the abdomen and pelvis were obtained without intravenous contrast. Coronal reformatted images were also obtained.This study was performed with techniques to keep radiation doses as low as reasonably achievable (ALARA). Individualized dose reduction techniques using automated exposure control or adjustment of mA and/or kV according to the patient''s size were employed. Abdomen: Bibasilar atelectasis versus scar is present. There is a 19 mm low-attenuation mass in the lower pole of the left kidney, which can not be accurately characterized without contrast administration but may represent a cyst. There is no evidence of renal stone or hydronephrosis.The liver, spleen and pancreas have an unremarkable, unenhanced appearance. No mass or adenopathy is seen. No inflammatory process is identified. Pelvis: Images of the pelvis reveal no evidence of ureteral dilation or ureteral stone.No mass or abnormal fluid collection is identified. The appendix is normal in appearance. There are several descending and sigmoid colon diverticula without evidence of diverticulitis. IMPRESSION: No renal or ureteral stone, or hydronephrosis. There is a 19 mm low-attenuation mass in the lower pole of the left kidney which can not be accurately characterized without contrast, may represent a cyst. However if indicated would suggest a CT with contrast for more accurate determination of etiology. No mass or inflammatory process. Reviewed, Interpreted and Dictated by Aidan Gant III, MD Transcribed by Lisa Carlin Authenticated and [facility]
[2022-11-27 06:33] LABS: Bacteria,Urine Trace /lpf; Squamous Epithelial Cell,Urine Occasional #/hpf (0-5)
[2022-11-27 06:35] LABS: C-Reactive Protein 4.4 mg/L (0-4)
[2022-11-27 06:49] LABS: Procalcitonin 0.041 ng/mL (0.0-2.0)
[2022-11-27 07:02] LABS: Erythrocyte Sedimentation Rate 5 mm/hr (0-20)
--- NOTE | 2022-11-27 07:03 | XR_ITS ---
FINAL REPORT CLINICAL HISTORY: rib pain, smoker COMPARISON: None FINDINGS: Two views of the chest were obtained. The heart size and pulmonary vascularity are within normal limits. The mediastinum is normal. There is mild atelectasis or scarring at the right lung base. There is no pneumothorax. The bony thorax is intact. IMPRESSION: Right lung base atelectasis or scarring Reviewed, Interpreted and Dictated by Aidan Gant III, MD Transcribed by Fifi Tran Authenticated and [facility]
[2022-11-27 07:11] VITALS: BP 137/82; PULSE 76; O2SAT 98
--- NOTE | 2022-11-27 07:16 | HMH.EDABDPAI ---
Discharge Plan Disposition Patient Disposition: Home, Self-Care Prescriptions Prescriptions: New prednisone [prednisone] 20 mg tablet 20 mg PO BID Qty: 10 0RF ketorolac 10 mg tablet 10 mg PO Q8H PRN (Reason: pain) 3 Days Qty: 10 0RF No Action cyclobenzaprine 7.5 mg tablet 7.5 mg PO HS PRN (Reason: muscle spasm) Qty: 14 0RF meloxicam 15 mg tablet 15 mg PO DAILY Qty: 30 0RF atorvastatin 20 mg tablet 20 mg PO DAILY Qty: 60 2RF aspirin 81 mg tablet,chewable 81 mg PO DAILY Qty: 60 2RF cholecalciferol (vitamin D3) 25 mcg (1,000 unit) capsule 25 mcg PO DAILY Qty: 60 2RF Referrals Follow up/Referrals: Sirena Gómez PA [Primary Care Provider] - See instructions Clinical Impressions Clinical Impression: Acute left flank pain Instructions Patient Instructions: DI for Flank Pain Discharge ED Provider: Jose (ED)Kartik Abdominal Pain HPI General Chief Complaint: Abdominal Pain Stated Complaint: Left side pain Time Seen by Provider: 11/27/22 06:30 Mode of Arrival: Ambulatory Source of Information: Patient and Medical Record Limitations: No Limitations Description of Symptoms (Recalled from ER Triage Doc. by RN): pt states that he has left flank pain for one week. pt states he went to [facility] and was put on muscle relaxers but is having no relief pain is 10/10 with movement History of Present Illness HPI narrative: pt with 1 week hx of lt flank and costal pain with pain worse with mov - no fever /rash or spine pain - no trauma - pt was seen on friday and placed on nsaif and mm relaxants complaint: flank pain Onset (ago): day(s) Consistency: intermittent Location: L flank Severity: moderate Quality: sharp Exacerbating factors: movement Associated symptoms: denies other symptoms Treatments prior to arrival: NSAIDs Related Data Previous Rx's Medication Instructions Recorded cyclobenzaprine 7.5 mg tablet 7.5 mg PO HS PRN muscle spasm #14 11/25/22 tabs meloxicam 15 mg tablet 15 mg PO DAILY #30 tabs 11/25/22 aspirin 81 mg chewable tablet 81 mg PO DAILY #60 tabs 11/26/22 atorvastatin 20 mg tablet 20 mg PO DAILY #60 tabs 11/26/22 cholecalciferol (vitamin D3) 25 25 mcg PO DAILY #60 caps 11/26/22 mcg (1,000 unit) capsule ketorolac 10 mg tablet 10 mg PO Q8H PRN pain 3 days #10 11/27/22 tabs prednisone 20 mg tablet 20 mg PO BID #10 tabs 11/27/22 Allergies Allergy/AdvReac Type Severity Reaction Status Date / Time No Known Allergies Allergy Verified 11/25/22 11:54 [facility] Disclaimer: The information contained in this section may have been updated after the patient was seen, as this information can be updated by other users. Medical History (Updated 11/27/22 @ 08:36 by Kartik Garcia (HARPER)MD) No significant past medical history Social History Smoking Status: Current every day smoker tobacco type: cigarettes packs per day: 1 second hand exposure: Yes alcohol intake: current substance use type: denies use current occupational status: other Travel in the last 8 weeks: None household members: spouse and other housing: house current occupational exposures/hazards: No caffeine: Yes ROS Obtained: Yes All systems reviewed & no additional complaints except as documented Physical Exam General General appearance: alert Head Head exam: normocephalic Eye Eye exam: Present PERRL and EOMI ENT ENT exam: Present mucous membranes moist Neck Neck exam: Present trachea midline Chest Chest inspection: Present tenderness; Absent rash Respiratory Respiratory exam: Present normal lung sounds bilaterally; Absent respiratory distress Cardiovascular Cardiovascular exam: Present regular rate Abdominal Exam Abdominal exam: Present soft; Absent tenderness, guarding or rebound Extremities Exam Extremities exam: Present full ROM Back Exam Back exam: Absent CVA tenderness (L) Neurologic
[2022-11-27 08:27] VITALS: BP 142/85; PULSE 71
[2022-11-27 08:30] VITALS: BP 134/81; PULSE 69
[2022-11-27 08:34] VITALS: BP 142/85; PULSE 71; RESP 16; TEMP 36.6; O2SAT 97
== END 2022-11-27 08:52 | disposition home or self-care (01) ==
PROVIDERS: Emergency Provider Emergency Medicine; PCP Student in an Organized Health Care Education/Training Program
DX: F17.210 Nicotine dependence, cigarettes, uncomplicated (principal); R10.9 Unspecified abdominal pain
CPT/HCPCS: 71046; 74176; 80053; 81001; 82150; 83690; 84145; 85025; 85651; 86140; 96361; 96374; 96375; 99284; 99285; J2405

== ENCOUNTER → 2022-11-30 09:14 | Outpatient (CLI) | payer BC, SELFPAY | PROVIDERS: PCP Nurse Practitioner Family; Visit Provider Nurse Practitioner Family | DX: R10.9 Unspecified abdominal pain (principal) | CPT/HCPCS: 87086 ==

== ENCOUNTER → 2022-12-05 08:16 | Outpatient (CLI) | payer BC, SELFPAY ==
--- NOTE | 2022-12-05 08:16 | US_ITS ---
FINAL REPORT TECHNIQUE: Ultrasound images of the abdomen were obtained. CLINICAL HISTORY: LUQ abdominal pain FINDINGS: The tail of the pancreas is obscured by bowel gas. The liver is unremarkable. The gallbladder is unremarkable. The common duct is normal. The right kidney measures 10.4 cm in length and is normal in echogenicity without hydronephrosis. The left kidney measures 12.7 cm in length and is normal in echogenicity without hydronephrosis. There is a hypoechoic focus in the lower left kidney measuring 1.8 cm in diameter compatible with a left renal cyst. The spleen is unremarkable. The aorta is normal in caliber. The vena cava is unremarkable. IMPRESSION: Normal ultrasound abdomen. 1.8 cm left renal cyst. Reviewed, Interpreted and Dictated by Chuckie Naik MD Transcribed by Lisa Carlin Authenticated and . [facility]
== END ==
LOC: RAD 08:16
PROVIDERS: PCP Nurse Practitioner Family; Visit Provider Nurse Practitioner Family
DX: R10.12 Left upper quadrant pain (principal)
CPT/HCPCS: 76700

== ENCOUNTER → 2022-12-11 08:22 | Outpatient (POV) | payer BC, SELFPAY ==
--- NOTE | 2022-12-11 09:08 | EXP.PAIN.OV ---
HPI Data of Consult Patient: new to practice Consult date: 12/11/22 Requesting Physician: Trish Hawkins APRN Primary Care Provider: SHANKAR Reddy Consult Narrative Reason for consult: Left flank pain, abdomen pain History of present illness: Mr. Teresa is a 52 year old male who presents today as a new patient. He is a referral from Sirena Gómez's office. Today he rates his pain a 10 out of 10 and states that his pain is all in his left low back around his flank area and radiating into his abdomen under his ribs. Patient states around the beginning of November he was breaking down a pool and felt a sharp sensation. Patient states he did think it was just a muscle that was strained however the pain has continued to be a constant issue and describes it as a aching sensation with occasional sharp piercing sensations with certain movements. Patient states he has been using [id number] Tylenol and ibuprofen along with heat and ice and topicals such as lidocaine, IcyHot and Biofreeze with no additional relief. He does state the pain interferes with his ability perform activities of daily living such as cooking or cleaning and that he has been off work the last 3 weeks due to the worsening pain. Patient does state that he gets some relief when laying down on the left side and it will ease up however he states prolonged sitting as increased pain as if the weight is being applied to that area. Patient did have imaging that ended up showing a large mass on his left kidney and he states that he was scheduled to see renal care in [place] in January. He states in the meantime he has made an appointment with Dr. Mosqueda's office on December 26. Patient is not on any scheduled medications. His David is [id number]. Its been reviewed and appropriate. CC: Trish Hawkins APRN [facility] Disclaimer: The information contained in this section may have been updated after the patient was seen, as this information can be updated by other users. Medical History Musculoskeletal back pain No significant past medical history Pain Ringing in ears Social History Smoking Status: Current every day smoker tobacco type: cigarettes packs per day: 1 second hand exposure: Yes alcohol intake: current substance use type: denies use current occupational status: other Travel in the last 8 weeks: None household members: spouse and other housing: house current occupational exposures/hazards: No caffeine: Yes Review of Systems Review of Systems Review of systems:: pertinent systems reviewed and negative unless documented below Review of systems (narrative): Review of Systems: General: No recent weight changes, no fever, no sleep disturbances Respiratory: No cough, no shortness of air, no recurring pulmonary infections Cardiovascular/peripheral vascular: No chest pain, no palpitations, no edema, no shortness of breath Gastrointestinal: No new onset incontinence, normal bowel movements reported Genitourinary: No new onset incontinence Musculoskeletal: Left flank/abdomen pain Psychiatric: [Normal mood/affect] Neurological: [Denies weakness in extremities], [denies balance issues] Meds Home Medications and Allergies Home Medications Medication Instructions Recorded Confirmed Type cyclobenzaprine 7.5 mg tablet 7.5 mg PO HS PRN muscle spasm #14 11/25/22 12/03/22 Rx tabs meloxicam 15 mg tablet 15 mg PO DAILY #30 tabs 11/25/22 12/03/22 Rx aspirin 81 mg chewable tablet 81 mg PO DAILY #60 tabs 11/26/22 12/03/22 Rx atorvastatin 20 mg tablet 20 mg PO DAILY #60 tabs 11/26/22 12/03/22 Rx cholecalciferol (vitamin D3) 25 25 mcg PO DAILY #60 caps 11/26/22 12/03/22 Rx mcg (1,000 unit) capsule prednisone 20 mg tablet 20 mg PO BID #10 tabs 11/27/22 12/03/22 Rx lisinopril 10 mg tablet 10 mg PO DAILY #30 tabs 12/02/22 12/03/22 Rx omeprazole 20 mg capsule,delayed
[2022-12-11 09:44] VITALS: BP 136/88; PULSE 77; RESP 18; O2SAT 99; BMI 28.8
== END | disposition home or self-care (01) ==
PROVIDERS: PCP Student in an Organized Health Care Education/Training Program; Visit Provider Nurse Practitioner Family
DX: R10.9 Unspecified abdominal pain (principal); M79.18 Myalgia, other site
CPT/HCPCS: 99202; G0463

== ENCOUNTER → 2022-12-27 10:07 | Outpatient (CLI) | payer BC, SELFPAY ==
[2022-12-27 10:46] LABS: Blood Urea Nitrogen 15 mg/dl (9-20); Estimated Glomerular Filt Rate 89 ml/min (>60); GFR (African American) 107 ML/MIN (>60)
== END ==
PROVIDERS: PCP Student in an Organized Health Care Education/Training Program; Visit Provider Urology
DX: N28.89 Other specified disorders of kidney and ureter (principal)
CPT/HCPCS: 36415; 82565; 84520

== ENCOUNTER → 2022-12-30 10:52 | Outpatient (CLI) | payer BC, SELFPAY ==
--- NOTE | 2022-12-30 10:58 | CT_ITS ---
FINAL REPORT TECHNIQUE: Pre- and postcontrast images of the abdomen were performed by computed tomography. Low-dose technique was utilized. CLINICAL HISTORY: RENAL MASS COMPARISON: 11/27/2022 FINDINGS: Lung bases are clear. Liver is homogeneous. Gallbladder is present. Spleen, adrenal glands and pancreas are without acute abnormality. There are no renal stones. A 17 mm hypodense lesion is seen arising from the left kidney measuring 3 Hounsfield units on precontrast imaging and 14 Hounsfield units on postcontrast imaging. No other renal lesion is identified. There is no hydronephrosis. There is no adenopathy or free fluid. There is no evidence of bowel obstruction. Osseous structures are without acute abnormality. IMPRESSION: Hypodense left renal lesion, likely a cyst. Volume averaging likely accounts for minimal appearance of enhancement. Reviewed, Interpreted and Dictated by Jalyn Rodriguez MD Transcribed by Sindi Grace Authenticated and [facility]
== END ==
LOC: RAD 10:52
PROVIDERS: PCP Student in an Organized Health Care Education/Training Program; Visit Provider Urology
DX: N28.89 Other specified disorders of kidney and ureter (principal)
CPT/HCPCS: 74170; Q9967

== ENCOUNTER 2022-12-31 07:52 | Day surgery (SDC) | payer BC, SELFPAY ==
[2022-12-31 08:10] VITALS: BP 143/88; PULSE 70; RESP 18; TEMP 36.6; O2SAT 95; BMI 28.8
[2022-12-31 08:29] VITALS: BP 133/83; PULSE 70; RESP 18; O2SAT 99
[2022-12-31 08:30] VITALS: BP 133/83; PULSE 70; RESP 18; O2SAT 97
[2022-12-31 08:40] VITALS: BP 134/78; PULSE 64; RESP 18; O2SAT 95
--- NOTE | 2022-12-31 08:53 | EXP.PAIN.PRO ---
Procedure Date: 12/31/22 Time: 08:20 Anesthesiologist:: Jan Yates CRNA Complications:: None Pre-procedure Diagnosis:: Myofascial pain left thoracolumbar paraspinous muscle. Post-procedure Diagnosis:: Same. Indications for Procedure:: Very pleasant 52-year-old male that comes our clinic today for trigger point injections left thoracolumbar paraspinous muscle. Patient has extreme point tenderness over the left thoracolumbar paraspinous muscle. He rates his pain 8/10 Procedure Details:: Details of the procedure explained to the patient. The patient taken the procedure room placed in sitting position. The area over the left thoracolumbar paraspinous muscle was cleaned using chlorhexidine as a cleansing solution. Using a 25-gauge inch and a half needle 3 separate areas including the left inferior thoracic paraspinous muscle as well as the superior left lumbar paraspinous muscle was injected with 4 cc of a solution containing 0.25% Marcaine +1% lidocaine and 20 mg of Depo-Medrol. Patient tolerated procedure without difficulty. There were no complications. Plan and Disposition:: Patient was reevaluated 10 minutes post procedure. He reports 80% improvement terms of his overall left thoracolumbar back pain. He was discharged without incident.
== END 2022-12-31 08:40 | disposition home or self-care (01) ==
LOC: SC.PAINP 07:53
PROVIDERS: PCP Student in an Organized Health Care Education/Training Program; Visit Provider Nurse Anesthetist, Certified Registered
DX: M79.18 Myalgia, other site (principal)
CPT/HCPCS: 20552; J1040

== ENCOUNTER → 2023-01-09 06:29 | Outpatient (CLI) | payer BC, SELFPAY ==
--- NOTE | 2023-01-09 | CA_ITS ---
APPROVED REPORT Exam: Exercise Treadmill Technologist: Romana Sutton, Ht: 5 ft 10 in Wt: 198 lbs BSA: 2.08 m2 HR: 82 bpm BP: 156/98 mmHg Rhythm: NSR, CANNOT R/O OLD INFERIOR SD Indications: SOA, CP Medical History Medical History: HTN, Hyperlipidemia Medications: Lisinopril,,,,, Omeprazole,,,,, Asa,,,,, Atorvastatin,,,,, MeLOXICAM,,,,, Vit D3,,,,, BisOPROLOL,,,,, Methocarbamol,,,,, Allergies: No known drug allergies Cardiac Risk Factors: HTN, Hyperlipidemia, Smoking Stress Test Details Test: Kai HR Resting HR: 85 bpm Max Heart Rate (APMHR): 168 bpm Max HR Achieved: 168 bpm Target HR (85% APMHR): 143 bpm % of APMHR: 100 Recovery HR: 102 bpm HR response to stress: Normal HR response to stress BP Resting BP: 156.0/98 mmHg Max BP: 222/86 mmHg Recovery BP: 163.0/89.0 mmHg BP response to stress: Abnormal hypertensive response to stress. ECG Resting ECG: NSR, CANNOT R/O OLD INFERIOR SD Stress ECG: < 1mm upsloping ST depression Arrhythmia: PVCs Recovery ECG: Return to baseline within 3 minutes of recovery Recovery Arrhythmia: None Clinical Exercise duration: 10:16 min Highest Stage Achieved: Exercise capacity: 12.8 METs Overall Exercise Capacity for Age: Average Stress ECG Conclusion PT EXERCISED 10:15 ON KAI PROTOCOL. HE HAS AN AVERAGE EXERCISE CAPACITY COMPARED TO AGE AND SEX MATCHED PEERS. HE HAS A NORMAL HR, BUT EXAGGERATED BP, RESPONSE TO EXERCISE. MAX HR: 161 % OF PM: 96% MAX BP: 222/86 METS: 12.8 TEST STOPPED DUE TO: SOA NO CP RARE PVC < [address] DEPRESSION AT PEAK STRESS THAT RESOLVES WITHIN 3 MINUTES OF RECOVERY CONCLUSION: POSSIBLE ISCHEMIA PRESENT ON STRESS ECG MYOIVEW IMAGES REPORTED SEPARATELY Test Summary REST . . . . . . . Standing REST 03:05 0.0 0.0 85 . 156/ 98 . . Stage 1 01:00 10.0 1.7 102 . . . . Stage 1 02:00 10.0 1.7 107 . . . . Stage 1 03:00 10.0 1.7 108 . 200/ 90 . . Stage 2 01:00 12.0 2.5 113 . . . . Stage 2 02:00 12.0 2.5 117 . . . . Stage 2 03:00 12.0 2.5 120 . 212/ 86 . . Stage 3 01:00 14.0 3.4 130 . . . . Stage 3 02:00 14.0 3.4 136 . . . . Stage 3 03:00 14.0 3.4 142 . 222/ 86 . . Stage 4 01:00 16.0 4.2 168 . . . . Stage 4 01:16 16.0 4.2 159 . . . Stop exercise at 10:16 RECOVERY 01:00 0.0 0.0 134 . . . . RECOVERY 02:00 0.0 0.0 120 . 139/ 94 . . RECOVERY 03:00 0.0 0.0 113 . 167/ 92 . . RECOVERY 04:00 0.0 0.0 104 . 167/ 92 . . RECOVERY 05:00 0.0 0.0 102 . 163/ 89 . . RECOVERY 05:14 0.0 0.0 104 . 163/ 89 . . Electronically signed by : Silvia Pereira, 01/09/2023 13:53:15
--- NOTE | 2023-01-09 06:34 | NM_ITS ---
APPROVED REPORT Exam: Nuclear Stress Test Indication: short of breath..palpitations Patient Location: Outpatient Stress Tech: Romana Sutton [place] Tech:Kaylan BarriosALEXANDREA RT(R)(N) Ht: 5 ft 10 in Wt: 198 lbs HR: 82 bpm BP: 156/98 mmHg BSA: 2.08 m2 Rhythm: NSR TID: 1.01 BMI: 28.4 History: short of breath..palpitations Procedure: Patient exercised on Ariel protocol 10:15 minutes and sec, resting heart rate 82 bpm, resting blood pressure 156/98 mmHg, with exercise maximum heart rate achived was 161 bpm which is 96 % of the maximum predicted heart rate and blood pressure was 222/86 mmHg. Test was stopped due to soa. Patient denied any complaint of chest pain. Patient has exercise capacity, achieved 12.8 METs of workload on treadmill, the blood pressure response to exercise was . Cardiac Stress and Resting SPECT Images: Cardiac Stress and Resting SPECT images were obtained using technetium 99m Myoview 30.1 mCi stress and 10.50 mCi at rest. Resting and stress perfusion imaging in supine position demonstrate medium sized, mild, fixed perfusion defect in the inferior LV wall with tapering towards the base. This is no longer visualized in prone stress imaging. Findings are suggestive of diaphragmatic attenuation. Imaging demonstrates normal global and regional LV systolic function. LVEF is calculated at 55%. Conclusion: Medium sized, mild, fixed perfusion defect in the inferior LV wall with tapering towards the base. This is no longer visualized in prone stress imaging. Findings are suggestive of diaphragmatic attenuation. No evidence of reversible ischemia. Imaging demonstrates normal global and regional LV systolic function. LVEF is calculated at 55%. Electronically signed by : Silvia Pereira, 01/09/2023 13:56:16
--- NOTE | 2023-01-09 07:33 | CA_ITS ---
APPROVED REPORT EXAM: Comprehensive 2D, Doppler, and color-flow Echocardiogram Rim Fire Priming Tool Setter: Roxane Craig CRT Ht: 5 ft 10 in Wt: 202lbs BSA: 2.10 BP: 156/97 mmHg Indications: Chest Pain, Shortness of Breath, CAD, Hyperlipidemia 2D Dimensions LVOT 1.82 cm (M/F) 1.5-2.5 LA Volume 39.90 mL LA Volume Index 19.00 mL/m2 (M/F) 16-34 M-Mode Dimensions RVDd 3.07 cm (0.9-2.6) LA Diam 3.46 cm (1.9-4.0) LVDd 4.60 cm (3.5-5.7) Ao Diam 3.70 cm (2.0-3.7) LVDs 2.61 cm (3.5-5.7) IVSd 1.14 cm (0.6-1.1) PWd 0.93 cm (0.6-1.1) EF (Teich) 74.50% FS 43.30% EDV (Teich) 97.30 mL TAPSE 1.98 (<1.7) ESV (Teich) 24.80 mL LV Diastology E Decel Time 157.00 (160-240 msec) E/A Ratio 1.1 MED E' 7.80 (< 7 cm/sec) MED A' 10.80 cm/s E'/MED E' Ratio 8.69 (>14) LAT E' 12.60 (<10 cm/sec) LAT A' 11.30 cm/s E/LAT E' Ratio 5.38 (>14) Aortic Valve AO Peak GR. 9.40 mmHg Mitral Valve MV E Max Adithya. 68.00 (40-130 cm/s) MV A Velocity 61.00 (40-130 cm/s) E/A Ratio 1.11 MV Decel. Time 157.00 (160-240 ms) MV PHT 46.00 ms Pulmonary Valve PV Peak Velocity 141.00 (50-150 cm/s) Tricuspid Valve TR P. Velocity 227.00 cm/s RAP Estimate 10.00 mmHg RVSP 30.70 mmHg Left Ventricle The left ventricle is normal size. The left ventricular systolic function is normal. The left ventricular ejection fraction is within the normal range. There is normal LV segmental wall motion. The left ventricular diastolic function is normal. LVEF is 60%. Right Ventricle The right ventricle is normal size. The right ventricular systolic function is normal. Atria The left atrium size is normal. The right atrium size is normal. There is no Doppler evidence of interatrial shunt. Aortic Valve There is focal nodular thickening at the level of the aortic cusps. Aortic valve is possibly bicuspid. There is no aortic valvular stenosis. Trace aortic regurgitation. Mitral Valve The mitral valve is normal in structure. There is no mitral valve regurgitation noted. Tricuspid Valve The tricuspid valve leaflets are thin and pliable. There is trace tricuspid valve regurgitation noted. RVSP is normal. Pulmonic Valve Pulmonic valve is grossly normal in structure. Trace pulmonic regurgitation. Great Vessels The aortic root is normal in size. The ascending aorta is normal in size. IVC is normal in size and collapses >50% with inspiration. Pericardium There is no pericardial effusion. Other Information Study Quality: Technically Difficult Conclusion This was a technically difficult study. Normal biventricular systolic function. Focal nodular thickening on aortic valve leaflets. Aortic valve possibly bicuspid. No evidence of aortic stenosis. For further evaluation of the aortic valve morphology, further imaging may be recommended (e.g. cardiac CTA vs. KARI). Electronically signed by : Silvia Pereira, 01/09/2023 18:20:46
--- NOTE | 2023-01-09 07:33 | CA_ITS ---
FINAL REPORT CLINICAL HISTORY: prem FINDINGS: RIGHT CAROTID: CCA PSV -76 cm/sec ICA PSV -103 cm/sec ICA/CCA PSV ratio -1.3. Comments: Mild plaque disease is noted. LEFTCAROTID: CCA PSV -78. cm/sec ICA PSV -78. cm/sec ICA/CCA PSV ratio -1.0. Comments: Mild plaque disease is noted. Antegrade flow is seen within the vertebral arteries. IMPRESSION: Carotid stenosis classified less than 50% Reviewed, Interpreted and Dictated by Shelby Gomez MD Transcribed by Sindi Grace Authenticated and [facility]
== END ==
LOC: RAD 06:29
PROVIDERS: PCP Student in an Organized Health Care Education/Training Program; Visit Provider Nurse Practitioner Family
DX: R07.89 Other chest pain (principal); I25.10 Atherosclerotic heart disease of native coronary artery without angina pectoris; I35.8 Other nonrheumatic aortic valve disorders; I10 Essential (primary) hypertension; E78.5 Hyperlipidemia, unspecified; I65.23 Occlusion and stenosis of bilateral carotid arteries; F17.200 Nicotine dependence, unspecified, uncomplicated; Z82.49 Family history of ischemic heart disease and other diseases of the circulatory system
CPT/HCPCS: 78452; 93017; 93306; 93880; A9502

== ENCOUNTER 2023-01-23 06:27 | Outpatient (CLI) | payer BC, SELFPAY ==
[2023-01-23 06:47] VITALS: BP 126/77; PULSE 69; RESP 18; TEMP 36.1; O2SAT 94
[2023-01-23 07:30] VITALS: BP 124/78; PULSE 61; RESP 18; O2SAT 96
[2023-01-23 07:42] VITALS: BP 130/72; PULSE 63; RESP 18; O2SAT 96
--- NOTE | 2023-01-23 07:42 | PC.NURSE ---
Test is complete, pt without C/O, VSS.
== END 2023-01-23 07:53 | disposition home or self-care (01) ==
LOC: RAD 06:27
PROVIDERS: PCP Student in an Organized Health Care Education/Training Program; Visit Provider Nurse Practitioner Family
DX: I25.84 Coronary atherosclerosis due to calcified coronary lesion (principal); Q23.1 Congenital insufficiency of aortic valve
CPT/HCPCS: 75574; Q9967

== ENCOUNTER → 2023-01-30 09:55 | Outpatient (CLI) | payer BC, SELFPAY ==
--- NOTE | 2023-01-30 09:59 | XR_ITS ---
FINAL REPORT CLINICAL HISTORY: LUE numbness, tingling COMPARISON: None FINDINGS: LEFT SHOULDER 3 views demonstrate no acute fracture or dislocation. The joint spaces appear normal. The visualized bony structures are well aligned. No soft tissue abnormality is seen. IMPRESSION: No acute process. Reviewed, Interpreted and Dictated by Aidan Gant III, MD Transcribed by Fifi Tran Authenticated and [facility]
--- NOTE | 2023-01-30 09:59 | XR_ITS ---
FINAL REPORT CLINICAL HISTORY: RUE numbness, tingling COMPARISON: None FINDINGS: 3 views of the cervical spine were obtained. There is no fracture present. There is no malalignment. There is mild degenerative change of the lower cervical spine with osteophytes. IMPRESSION: Degenerative change without acute process. Reviewed, Interpreted and Dictated by Aidan Gant III, MD Transcribed by Fifi Tran Authenticated and . [facility]
[2023-01-30 18:46] LABS: Basophils % 0.4 % (0.1-2.0); Eosinophils # 0.2 K/mm3 (0.0-0.4); Eosinophils % 2.9 % (0.1-12.0); Hematocrit 48.8 % (42.0-52.0); Lymphocytes # 1.8 K/mm3 (0.7-4.5); Lymphocytes % 25.2 % (10-50); Mean Corpuscular HGB Conc 32.8 g/dL (31.8-35.4); Mean Corpuscular Hemoglobin 31.7 pg (27.0-31.2); Mean Corpuscular Volume 96.8 fl (80-94); Mean Platelet Volume 9.4 fl (7.4-10.4); Monocytes # 0.5 K/mm3 (0.1-1.0); Monocytes % 6.9 % (1.7-9.3); Neutrophils # 4.5 K/mm3 (1.8-7.8); Neutrophils % 64.6 % (37.0-80.0); Platelet Count 335 K/mm3 (142-424); Red Blood Count 5.04 M/mm3 (4.60-6.20); Red Cell Distribution Width 13.3 % (11.5-17.5)
[2023-01-30 19:15] LABS: Alanine Aminotransferase 29 U/L (12-78); Albumin Level 4.4 g/dl (3.5-5.0); Albumin/Globulin Ratio 1.6 (1.1-1.8); Alkaline Phosphatase 120 U/L (38-126); Anion Gap 15.2 mEq/L (5-15); Aspartate Amino Transferase 29 U/L (17-59); Bilirubin,Total 0.8 mg/dl (0.2-1.3); Blood Urea Nitrogen 16 mg/dl (9-20); Calcium 9.2 mg/dl (8.4-10.2); Carbon Dioxide 24 mmol/L (22.0-30.0); Chloride 104 mmol/L (98-107); Chol/HDL Ratio 4.3 (1-3.5); Cholesterol 183 mg/dl (140-200); Estimated Glomerular Filt Rate 102 ml/min (>60); GFR (African American) 123 ML/MIN (>60); Globulin 2.7 g/dL (1.3-3.2); Glucose 89 mg/dl (74-100); HDL Cholesterol 43 mg/dl (40-60); Potassium 4.2 mmoL/L (3.5-5.1); Sodium 139 mmol/L (136-145); Total Protein,Serum 7.1 g/dl (6.3-8.2); Triglycerides 138 mg/dl (30-150); VLDL Cholesterol 28 mg/dL (0-40)
[2023-01-30 19:26] LABS: Direct LDL Cholesterol 109.17 mg/dL (100-129)
[2023-01-30 19:32] LABS: 25-OH Vitamin D, Total 30.9 ng/mL (30-100)
[2023-01-30 19:45] LABS: Thyroid Stimulating Hormone 1.72 uIU/mL (0.465-4.68)
[2023-01-30 20:26] LABS: Vitamin B12 546 pg/mL (239-931)
== END ==
PROVIDERS: PCP Student in an Organized Health Care Education/Training Program; Visit Provider Student in an Organized Health Care Education/Training Program
DX: R20.0 Anesthesia of skin (principal); R20.2 Paresthesia of skin; I10 Essential (primary) hypertension
CPT/HCPCS: 72040; 73030; 80053; 80061; 82306; 82607; 82746; 84443; 85025

== ENCOUNTER → 2023-02-03 09:49 | Outpatient (POV) | payer BC, SELFPAY ==
--- NOTE | 2023-02-03 10:15 | EXP.PAIN.SOA ---
[facility] Pain Management SOAP Note Subjective:: Patient is a pleasant 52-year-old male who presents today for follow-up of trigger point injections to the left thoracolumbar paraspinous muscles on 12/31/2022. We are currently treating the patient for acute left flank pain, abdominal pain, myofascial pain of the left side. Today he rates his pain a 6 out of 10. Patient states he has had 75% improvement following this injection and feels like it is still continuing to provide relief. He does state that his pain today is more into his low back along the left side and down his entire left leg. Patient does describe this as a deep achy sensation with numbness and throbbing more prominent at night. Patient denies any specific trauma or injury that initially started his symptoms. Patient does state that the pain interferes with his ability perform activities of daily living such as cooking or cleaning. Patient has tried aism-zeq-shpbmeq Tylenol and ibuprofen along with heat and ice and topicals with limited relief. Patient was prescribed methocarbamol 750 mg 3 times a day and compounding cream at our last visit. Patient states he did not notice any additional improvement with the muscle relaxer and that the compounding cream was not covered by his insurance. Patient does state that he has had a lot going on. At our last visit he did mention he had had a large mass found on his left kidney and was scheduled for an appointment with a castings trimmer. He states he has been to this office and it was a cyst and they are just monitoring in 1 year. Patient does state that he is scheduled for a neurologist appointment this week and is also scheduled for an upcoming heart monitor to wear for 30 days to rule out possible valve issues. Patient is not on any scheduled medications. His David is [phone]. Its been reviewed and appropriate. Review of Systems: General: No recent weight changes, no fever, no sleep disturbances Respiratory: No cough, no shortness of air, no recurring pulmonary infections Cardiovascular/peripheral vascular: No chest pain, no palpitations, no edema, no shortness of breath Gastrointestinal: No new onset incontinence, normal bowel movements reported Genitourinary: No new onset incontinence Musculoskeletal: Low back pain, left leg pain Psychiatric: [Normal mood/affect] Neurological: [Denies weakness in extremities], [denies balance issues] Objective:: Physical Exam: General: Alert and oriented x3, no acute distress, pleasant and cooperative Lungs: Respirations even and unlabored, symmetrical chest expansion Eyes: PERRL Musculoskeletal: Flexion and extension of lumbar [spine] somewhat guarded secondary to pain, [antalgic gait noted] positive left leg raise, decreased reflexes and sensation in left leg Neurological: Speech clear, no gross sensory deficit Assessment:: Low back pain with lumbar radiculopathy symptoms, acute left flank pain, abdominal pain, myofascial pain of the left thoracolumbar paraspinous muscles Plan:: Patient is experiencing significant pain in his low back with radiating symptoms down his left leg. Patient has a positive left leg raise with decreased sensation and reflexes noted during today's exam. I have discussed with the patient that he may benefit from a left transforaminal epidural steroid injection. Risk and benefits were explained to the patient however at this time he would like to wait. I have counseled the patient that he cannot call and schedule this injection over the phone if he decides to before her next appointment follow-up. Patient is not on any blood thinners. I have also discussed with the patient that his cardiac issues do take precedent and that we would want to confirm that there are no contraindications to this injection. Patient will return to clinic in 1 month for reevaluation of symptoms and plan of care. Patient has been instructed to contact the clinic with any concerns before the next appointment. Dr. Luna
[2023-02-03 12:22] VITALS: BP 137/89; PULSE 75; RESP 18; O2SAT 96; BMI 27.3
== END ==
PROVIDERS: Visit Provider Nurse Practitioner Family
DX: M51.16 Intervertebral disc disorders with radiculopathy, lumbar region (principal); R10.32 Left lower quadrant pain; R10.9 Unspecified abdominal pain; M79.18 Myalgia, other site
CPT/HCPCS: 99212; G0463

== ENCOUNTER → 2023-02-03 10:36 | Outpatient (CLI) | payer BC, SELFPAY | PROVIDERS: PCP Student in an Organized Health Care Education/Training Program; Visit Provider Internal Medicine | DX: R00.2 Palpitations (principal) | CPT/HCPCS: 93270 ==

== ENCOUNTER 2023-10-20 11:45 | Outpatient (CLI) | payer BC, SELFPAY ==
[2023-10-20 18:46] LABS: Basophils # 0.1 K/mm3 (0-0.2); Basophils % 0.7 % (0.1-2.0); Eosinophils # 0.1 K/mm3 (0.0-0.4); Eosinophils % 1.5 % (0.1-12.0); Hematocrit 51.6 % (42.0-52.0); Hemoglobin 16.7 g/dL (14.1-18.0); Lymphocytes # 1.4 K/mm3 (0.7-4.5); Lymphocytes % 16.7 % (10-50); Mean Corpuscular HGB Conc 32.3 g/dL (31.8-35.4); Mean Corpuscular Hemoglobin 32.2 pg (27.0-31.2); Mean Corpuscular Volume 99.9 fl (80-94); Mean Platelet Volume 8.3 fl (7.4-10.4); Monocytes # 0.4 K/mm3 (0.1-1.0); Neutrophils # 6.6 K/mm3 (1.8-7.8); Neutrophils % 76.1 % (37.0-80.0); Platelet Count 311 K/mm3 (142-424); Red Blood Count 5.17 M/mm3 (4.60-6.20); Red Cell Distribution Width 13.5 % (11.5-17.5); White Blood Count 8.6 K/mm3 (4.8-10.8)
[2023-10-20 18:50] LABS: Alanine Aminotransferase 26 U/L (12-78); Albumin Level 4.3 g/dl (3.5-5.0); Albumin/Globulin Ratio 1.7 (1.1-1.8); Alkaline Phosphatase 98 U/L (38-126); Aspartate Amino Transferase 30 U/L (17-59); Bilirubin,Total 0.6 mg/dl (0.2-1.3); Blood Urea Nitrogen 10 mg/dl (9-20); Calcium 9.5 mg/dl (8.4-10.2); Carbon Dioxide 21 mmol/L (22.0-30.0); Chloride 110 mmol/L (98-107); Chol/HDL Ratio 5.1 (1-3.5); Cholesterol 209 mg/dl (140-200); Estimated Glomerular Filt Rate 118 ml/min (>60); GFR (African American) 143 ML/MIN (>60); Globulin 2.6 g/dL (1.3-3.2); Glucose 83 mg/dl (74-100); HDL Cholesterol 41 mg/dl (40-60); Sodium 140 mmol/L (136-145); Total Protein,Serum 6.9 g/dl (6.3-8.2); Triglycerides 133 mg/dl (30-150); VLDL Cholesterol 27 mg/dL (0-40)
[2023-10-20 19:00] LABS: Direct LDL Cholesterol 138.98 mg/dL (100-129)
[2023-10-20 19:07] LABS: 25-OH Vitamin D, Total 23.4 ng/mL (30-100)
[2023-10-20 19:21] LABS: Thyroid Stimulating Hormone 0.91 uIU/mL (0.465-4.68)
[2023-10-20 19:24] LABS: Hemoglobin A1C 5.4 % (4.0-6.0)
== END 2023-10-20 23:59 | disposition home or self-care (01) ==
LOC: LAB.DROPOF 10-21 11:45
PROVIDERS: PCP Student in an Organized Health Care Education/Training Program; Visit Provider Student in an Organized Health Care Education/Training Program
DX: I10 Essential (primary) hypertension (principal); E55.9 Vitamin D deficiency, unspecified; Z68.27 Body mass index [BMI] 27.0-27.9, adult; F17.210 Nicotine dependence, cigarettes, uncomplicated
CPT/HCPCS: 80053; 80061; 82306; 83036; 84443; 85025

== ENCOUNTER 2025-05-17 16:35 | Outpatient (CLI) | payer BC, SELFPAY ==
--- OUTSIDE RECORDS SUMMARY | 2025-05-18 09:58 | XMS_ITS | Clinical Summary ---
Author Organization Healthcare Address [address] 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
== END 2025-05-17 23:59 | disposition home or self-care (01) ==
LOC: LAB.DROPOF 05-18 09:52
PROVIDERS: Visit Provider Nurse Practitioner
DX: R69 Illness, unspecified (principal)

== ENCOUNTER 2025-05-17 16:52 | Outpatient (CLI) | payer BC, SELFPAY ==
--- OUTSIDE RECORDS SUMMARY | 2025-05-17 16:55 | XMS_ITS | Clinical Summary ---
Author Organization Healthcare Address [address] [place] [address] Care Team Providers Care Coffee Sampler Name Role Phone Pcp, No Primary Care Provider Unavailcristóbal e Allan Vázquez MD Unavailable Allergies No known active allergies Medications Vitamin D3 25 MCG (1000 UT) capsule 02/20/2021 A ctive gabapentin (Neurontin) 800 MG tablet Take 800 mg by mouth 1 (one) time each day. 02/05/2021 Active varenicline (Chantix Starting Month ) 0.5 MG X 11 & 1 MG X 42 tabletIndications :Tobacco abuse counseling Take 0.5 mg by mouth 2 (two) times a day. Take 1 tablet from day 1-3 and then twice daily after that 28 each 03/02/2021 Active atorvastatin (Lipitor) 40 MG tablet Take 1 tablet (40 mg total) by mouth 1 (one) time each day. 30 tablet 11 03/05/2021 Active lisinopril 20 MG tabletIndications :Essential (primary) hypertension Take 1 tablet (20 mg total) by mouth 1 (one) time each day. 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 Analyst) 12+ years Family History Medical History Relation Name Comments Multiple myeloma Father COPD Mother Diabetes Mother Heart disease Mother Relation Name Status Comments Father Mother Social History Tobacco Use Types Packs/Day Years Used Date Smoking Tobacco: Every Day Cigarettes 2 35 Smokeless Tobacco: Never Tobacco Cessation:Ready to Q uit: Yes; Counseling Given: Yes PHQ-2 Answer Date Recorded Patient Health Questionnaire-2 Score 0 04/12/2021 Sex and Gender Information Value Date Recorded Sex Assigned at Not on file Legal Sex Male 6:27 PM EDT Gender Identity Not on file Sexual Orientation Not on file Last Filed Vital Signs Vital Sign Reading Time Taken Comments Blood Pressure 150/84 04/12/2021 9:16 AM EDT Pulse 96 04/12/2021 9:16 AM EDT Temperature 36.6 C (97.8 F) 04/12/2021 9:16 AM EDT Respiratory Rate 20 04/12/2021 9:16 AM EDT Oxygen Saturation 97% 04/12/2021 9:16 AM EDT Inhaled Oxygen Concentration - - Weight 88.7 kg (195 lb 8.8 oz) 04/12/2021 9:16 A M EDT Height 177.8 cm (5' 10 ) 04/12/2021 9:16 AM EDT Body Mass Index 28.06 04/12/2021 9:16 AM EDT Plan of Treatment Health Maintenance Due Date Last Done Comments [facility]-Depression Screening 1970 [facility]-/Child/Adol SDOH Screenings 1970 [facility]- SDOH Screenings 1988 [facility]-Adult SDOH Screenings 1988 [facility]-DTaP,Tdap,and Td Vaccine s (1 - Tdap) 1989 [facility]-Hepatitis B Vaccines (1 of 3 - 19+ 3-dose series) 1989 CT Colonography 2015 Colonoscopy 2015 FIT-DNA 2015 FIT 2015 FOBT 2015 Sigmoidoscopy 2015 [facility]-Colorectal Cancer Screening 2015 [facility]-Pneumococcal Vaccine: 50 + Years (1 of 1 - PCV) 2020 [facility]-Zoster Vaccines (1 of 2) 2020 [id number] Vaccine (3 - season) 2025 10/26/2020, 09/28/2020 [facility]-Influenza Vaccine (#1) 2025 HPV Vaccines Aged Out No longer eligi ble based on patient's age to complete this topic [facility]-HIB Vaccines Aged Out No longer e ligible based on patient's age to complete this topic [facility]-Hepatitis A Vaccines Aged Out No longer eligible based on patient's age to complete this topic [facility]-IPV Vaccines Aged Out No longer e ligible based on patient's age to complete this topic [facility]-Rotavirus Vaccines Aged Out No lo nger eligible based on patient's age to complete this topic Insurance ANTHEM ANTHEM Care Teams Coffee Sampler Relationship Specialty Start Date End Date Pcp, [place] [address] PCP - General Family Medicine 01/23/23 Allan Vázquez MD [address] [place] [address] Family Medicine 01/23/23
--- NOTE | 2025-05-17 16:57 | XR_ITS ---
PROCEDURE INFORMATION: Exam: XR Left Elbow Exam date and time: 05/17/2025 4:47 PM Age: 54 years old Clinical indication: Pain; Elbow; Left; Additional info: Elbow pain TECHNIQUE: Imaging protocol: Radiologic exam of the left elbow. Views: 3 or more views. COMPARISON: CR XR SHOULDER LT MIN 2V 01/30/2023 10:01 AM FINDINGS: Bones/joints: Normal. Soft tissues: Normal. IMPRESSION: No acute findings.
[2025-05-17 19:35] LABS: Uric Acid 5.9 mg/dl (3.5-8.5)
[2025-05-17 20:22] LABS: Hepatitis C Ab Qual. W/ RFX NEGATIVE (Negative)
[2025-05-19 07:26] LABS: Hepatitis B Surface Antigen Negative (Negative)
== END 2025-05-17 23:59 | disposition home or self-care (01) ==
LOC: RAD 16:53
PROVIDERS: Visit Provider Nurse Practitioner
DX: M25.522 Pain in left elbow (principal); M10.9 Gout, unspecified; Z11.59 Encounter for screening for other viral diseases
CPT/HCPCS: 73080; 84550; 86803; 87340; 87389